=== PATIENT | male | born 1970 | race Caucasian/White ===

== ENCOUNTER 2023-07-31 06:24 | Inpatient (IN) ==
[2023-07-31 07:57] LABS: Appearance Urine Cloudy (Clear); Bacteria Urine Automated Negative (Negative); Bilirubin Urine Negative (Negative); Blood Urine Negative (Negative); Color Urine Dark Yellow; Glucose Urine UA Negative (Negative); Ketones Urine Trace (Negative); Leukocyte Esterase Urine Negative (Negative); Nitrite Urine Negative (Negative); Protein Urine Trace (Negative); Specific Gravity Urine 1.035 (1.000-1.030); Urobilinogen Urine Negative (Negative)
[2023-07-31 07:58] LABS: Basophils # (auto) 0.04 K/uL (0.00-0.20); Basophils % (auto) 0.3 %; Eosinophils # (auto) 0.07 K/uL (0.00-0.50); Eosinophils % (auto) 0.5 %; Hemoglobin 14.6 g/dl (14.0-18.0); Immature Granulocytes # (auto) 0.07 K/uL (0.01-0.20); Immature Granulocytes % (auto) 0.5 %; Lymphocytes # (auto) 1.47 K/uL (1.20-3.40); Lymphocytes % (auto) 10.9 %; Mean Corpuscular Hemoglobin 31.9 pg (25.0-34.0); Mean Corpuscular Hgb Conc 36.5 g/dL (32.0-36.0); Mean Corpuscular Volume 87.3 fL (80.0-100.0); Mean Platelet Volume 9.3 fL (9.4-12.4); Monocytes # (auto) 0.84 K/uL (0.11-0.59); Monocytes % (auto) 6.2 %; Neutrophils # (auto) 11.04 K/uL (1.40-6.50); Neutrophils % (auto) 81.6 %; Platelet Count 254 K/uL (130-400); RDW Coefficient of Variation 12.2 % (11.5-14.5); RDW Standard Deviation 38.8 fL (36.4-46.3); Red Blood Count 4.58 M/uL (4.70-6.10); White Blood Count 13.53 K/ul (4.8-10.8)
[2023-07-31 08:07] LABS: Albumin Globulin Ratio 1.3 (0.9-2); Albumin Level 4.2 gm/dl (3.4-5.0); BUN Creatinine Ratio 21.4 (10-20); Bilirubin,Total 0.5 mg/dl (0.2-1.0); Calcium 8.8 mg/dl (8.6-10.3); Creatinine Clr Calc Pharmacy 106.3 ml/min; Est GFR (African American) 116.7 ml/min; Est GFR (Non-African American) 100.7 ml/min; Globulin 3.2 gm/dl (2.5-4.0); Potassium 3.6 mmol/L (3.5-5.1); Total Protein 7.4 gm/dl (6.0-8.3)
[2023-07-31 08:23] LABS: Calcium Oxalate Crystals Urine Present (None Prsent)
[2023-07-31] MEDS ORDERED: OPTIRAY 320 500ml IV ONE (09:00)
--- NOTE | 2023-07-31 09:35 | CT Scan Report ---
CT SCAN OF THE ABDOMEN AND PELVIS WITH IV CONTRAST CLINICAL HISTORY: Right upper quadrant abdominal pain. COMPARISON STUDY: No priors. TECHNIQUE: Following the IV administration of 90 cc of Optiray 320, CT scan of the abdomen and pelvi s is performed from the lung bases to the proximal femora. Images are reviewed in the axial, sagittal , and coronal planes. IV contrast was administered without complication. A dose lowering technique wa s utilized adhering to the principles of ALARA. CT DOSE: 1127.22 mGy.cm FINDINGS: Lung bases: The heart is mildly enlarged noting trace pericardial effusion. There is mild bibasilar s carring/atelectasis. Air-trapping is seen at the right lung base. No airspace consolidation or pleura l effusion is identified. There is a small hiatal hernia. Liver: The contrast-enhanced liver is normal in size, contour, and attenuation. There is no intrahepa tic biliary ductal dilatation. The hepatic veins and portal veins are patent. Gallbladder: There are numerous calcified gallstones. The gallbladder is distended, and the wall is t hickened/hyperemic with surrounding inflammation and fluid. Findings are consistent with acute cholec ystitis. Suspect stones in the cystic duct on image #101. Spleen: Normal in size and attenuation. Pancreas: Unremarkable. Adrenal glands: Unremarkable. Kidneys: The contrast enhanced kidneys are normal in size and without hydronephrosis. The kidneys enh ance symmetrically. Renal sinus cysts are seen bilaterally. Abdominal vasculature: The abdominal aorta is normal in course and caliber. There is a fat-containing umbilical hernia. The IVC is diminutive, with large retroperitoneal collateral vessels and a large a zygos vein. Bowel: There is mild to moderate colonic fecal retention. No bowel obstruction is seen. Wall thickeni ng is noted in the rectosigmoid. No surrounding inflammation is seen. The appendix is well-visualize d and normal. Peritoneum: There is no intraperitoneal free air or abdominal ascites. Lymphadenopathy: None. Pelvic viscera: The bladder is largely decompressed and appears thick-walled. The prostate gland and seminal vesicles are normal as visualized. Skeletal structures: There is mild to moderate lumbosacral spondylosis. No lytic or blastic lesions a re seen. IMPRESSION: 1. Cholelithiasis with acute cholecystitis. There are likely calcified gallstones in the cystic duct. Surgical evaluation is advised. 2. There is no intra or extrahepatic biliary ductal dilatation. 3. Circumferential wall thickening is suggested involving the rectosigmoid colon. There is no surroun ding inflammation and this is of indeterminate significance. If not recently performed, follow-up wit h colonoscopy is recommended for further assessment. 4. The bladder wall is circumferentially thickened. Correlate with clinical findings and urinalysis. 5. Mild cardiomegaly. 6. Additional findings as above. ACT 112: Negative or not required by law. Electronically signed by: Kash Hickey M.D. 07/31/2023 9:34 AM
[2023-07-31] MEDS ORDERED: ACETAMINOPHEN 1,000 MG/100 ML VIAL IV STA (10:00)
[2023-07-31] MEDS ORDERED: MoRPHine SULFATE 4 MG/ML 1 ML CARP\\VIAL IV STA (10:00)
[2023-07-31] MEDS ORDERED: ONDANSETRON INJ 2 MG/ML 2 ML VIAL IV STA (10:00)
--- NOTE | 2023-07-31 10:04 | Emergency Department Note ---
Impression & Plan Abdominal pain, Acute cholecystitis ED Provider Note ED Provider Note NAME: MARTHA PERSAUD AGE:53 SEX: Male : 1970 ARRIVES VIA: Private vehicle INFORMANT: Patient ED PROVIDER(s): Ariana Horvath DO CHIEF COMPLAINT: Abdominal pain HPI: This is a 53-year-old male presents emergency room due to concern for abdominal pain. Patient states he felt uncomfortable when he laid down to go to sleep around midnight. He states that an hour or so before that he had eaten chili. He states by 3 AM he woke up with much more severe right upper quadrant abdominal pain. He denies nausea or vomiting, denies fevers or chills, denies any recent change in urine or change in stools. No prior abdominal surgeries. He states he had a similar episode of pain on Saturday that kept him up all night however by Saturday morning at 7 AM the symptoms resolved and he felt fine Saturday and yesterday. He states with that episode he did have nausea vomiting though, no nausea or vomiting last night. No other prior GI history. No other treatment prior to arrival. PAST MEDICAL HISTORY:See Below PAST SURGICAL HISTORY:See Below FAMILY HISTORY:See Below SOCIAL HISTORY:See Below HOME MEDICATIONS:See Below ALLERGIES:See Below VITALS:See Below PHYSICAL EXAMINATION: GENERAL: alert, well appearing, well nourished, no distress, non-toxic EYE EXAM: normal conjunctiva, PERRL and EOM's grossly intact OROPHARYNX: no exudate, no erythema, lips, buccal mucosa, and tongue normal and mucous membranes are moist NECK: supple, no nuchal rigidity, no adenopathy, non-tender LUNGS: Clear to auscultation. Normal chest wall mechanics, no w/r/r HEART: no murmurs, S1 normal and S2 normal ABDOMEN: abdomen soft, tenderness with palpation of the right upper quadrant, normo-active bowel sounds, no masses, no rebound or guarding. BACK: Back is symmetrical on inspection and there is no deformity, no midline tenderness, no CVA tenderness. SKIN: no rashes, petechiae, orbruising UPPER EXTREMITIES: upper extremities are grossly normal. FROM, nml pulses b/l. LOWER EXTREMITIES: No pitting edema. FROM, nml pulses b/l. NEURO EXAM: Normal sensorium, cranial nerves II-XII grossly intact, normal speech, no facial droop,nogross weakness of arms, no gross weakness of legs. Gross sensation intact. No ataxia. Vital Signs: reviewed and remarkable Differential Diagnosis: Pancreatitis, gastritis, cholecystitis, GERD, GI bleed, perforation, mesenteric ischemia, pneumonia, ACS, dissection, as well as others were considered MEDICAL DECISION MAKING: This is a 53-year-old male presents emergency department due to concern for abdominal pain. Patient afebrile vital signs stable. Labs drawn and sent, IV established, and patient sent for CT of abdomen pelvis. Once a bed was available he was placed in a room and started on IV fluids. He was given IV Tylenol and IV morphine for pain as well as IV Zofran for nausea. Case discussed with general surgery on-call as CT of the abdomen and pelvis showed evidence of acute cholecystitis. Patient did have mild leukocytosis, no abnormal LFTs or SOPHIE was noted. Patient does use Eliquis due to history of DVTs although had not had his morning dose. He stated his last dose of Eliquis had been the night before. General surgery came and evaluated patient emergency room and admitted him for operative intervention. Patient remained hemodynamically stable throughout. They did not request any additional orders placed. Consultation(s): 1140: Discussed with general surgery, Linda Medina nurse practitioner, they plan to admit the patient. ER Treatment Provided: See below Diagnostics Interpreted By Me: -ECG: [] -Cardiac Monitoring: An order was placed for continuous cardiac monitoring. The monitor shows a rate of [] with [] rhythm. -Laboratory studies: As stated above and show below. -Imaging studies: [] Triage Nursing Note Reviewed Prior/Outside Records Reviewed Past Med/Surg History Social History Smoking Status: Never smoker Second Hand Exposure: No; Do You Dip or Chew Tobacco: No; Tobacco Cessation Education Requested by Patient: No Hx Alcohol Use: Yes Alcohol type: beer Hx Substance Use: No Preferred Language: [place] Communication Ability: Effective Vice President Compliance Required: No Beliefs That Will Affect Care: None Current Living Situation: Alone Other Information That Helps Us Care for You: No Feels Safe at Home: No Is there a partner from a previous relationship who is making you feel unsafe now?: No Any Concerns about Your Family Situation: No Would You Like to Speak to Someone About Your Situation: No Assistive Devices: None Allergies Allergies Allergy/AdvReac Type Severity Reaction Status Date / Time No Known Allergies Allergy Unverified 07/31/23 08:59 Home Meds Home Medications Medication Instructions Recorded Confirmed apixaban 5 mg tablet (Eliquis) 5 mg PO BID 07/31/23 07/31/23 sildenafil 100 mg tablet 100 - 200 mg PO DIRECTED PRN 07/31/23 07/31/23 Other Results & Data (ED) Vital Signs Vital Signs - 24 hr 07/31/23 06:37 07/31/23 09:00 07/31/23 11:00 Temperature 36.8 C Temperature Source Temporal Artery Scan Pulse Rate 88 Pulse Rate [Left Finger] 75 95 H Pulse Rhythm Regular Pulse Rhythm [Left Finger] Regular Pulse Strength Normal Pulse Strength [Left Finger] Normal Respiratory Rate 19 18 18 Respiratory Effort / Characteristics Non-Labored Spontaneous Non-Labored Spontaneous Respiratory Depth Normal Normal Respiratory Pattern Regular Regular Blood Pressure [Right Arm] 183/105 H 167/102 H Blood Pressure Mean [Right Arm] 131 123 Blood Pressure Position Sitting Blood Pressure Position [Right Arm] Sitting Pulse Oximetry 95 98 97 Oxygen Delivery Method Room Air Room Air Sepsis Recent Fever Within 48 Hours No Sepsis New/Unexplained Change in Mental Status N/A Sepsis Action Taken by Nursing No Action Required 07/31/23 11:18 Temperature Temperature Source Pulse Rate 90 Pulse Rate [Left Finger] Pulse Rhythm Pulse Rhythm [Left Finger] Pulse Strength Pulse Strength [Left Finger] Respiratory Rate Respiratory Effort / Characteristics Respiratory Depth Respiratory Pattern Blood Pressure [Right Arm] Blood Pressure Mean [Right Arm] Blood Pressure Position Blood Pressure Position [Right Arm] Pulse Oximetry Oxygen Delivery Method Sepsis Recent Fever Within 48 Hours Sepsis New/Unexplained Change in Mental Status Sepsis Action Taken by Nursing Laboratory Data 08/01/23 07:23 08/01/23 07:23 Lab Results 07/31/23 Range/Units 07:30 WBC 13.53 H (4.8-10.8) K/ul RBC 4.58 L (4.70-6.10) M/uL Hgb 14.6 (14.0-18.0) g/dl Hct 40.0 L (42.0-52.0) % MCV 87.3 (80.0-100.0) fL MCH 31.9 (25.0-34.0) pg MCHC 36.5 H (32.0-36.0) g/dL RDW Std Deviation 38.8 (36.4-46.3) fL RDW Coeff of [place] 12.2 (11.5-14.5) % Plt Count 254 (130-400) K/uL MPV 9.3 L (9.4-12.4) fL Immature Gran % (Auto) 0.5 % Neut % (Auto) 81.6 % Lymph % (Auto) 10.9 % Andrews % (Auto) 6.2 % Eos % (Auto) 0.5 % Baso % (Auto) 0.3 % Neut # (Auto) 11.04 H (1.40-6.50) K/uL Lymph # (Auto) 1.47 (1.20-3.40) K/uL Andrews # (Auto) 0.84 H (0.11-0.59) K/uL Eos # (Auto) 0.07 (0.00-0.50) K/uL Baso # (Auto) 0.04 (0.00-0.20) K/uL Immature Gran # (Auto) 0.07 (0.01-0.20) K/uL Sodium 137 (136-145) mmol/L Potassium 3.6 (3.5-5.1) mmol/L Chloride 107 (98-107) mmol/L Carbon Dioxide 22 (21-32) mmol/L Anion Gap 8 (3-11) BUN 18 (6-23) mg/dl Creatinine 0.84 (0.6-1.4) mg/dl Est Cr Clr Drug Dosing 106.3 ml/min Est GFR ( Amer) 116.7 ml/min Est GFR (Non-Af Amer) 100.7 ml/min BUN/Creatinine Ratio 21.4 H (10-20) Glucose 133 H (70-99(Fasting)) mg/dl Calcium 8.8 (8.6-10.3) mg/dl Total Bilirubin 0.5 (0.2-1.0) mg/dl AST 17 (13-39) U/L ALT 12 (7-52) U/L Alkaline Phosphatase 54 (34-104) U/L Total Protein 7.4 (6.0-8.3) gm/dl Albumin 4.2 (3.4-5.0) gm/dl Globulin 3.2 (2.5-4.0) gm/dl Albumin/Globulin Ratio 1.3 (0.9-2) Lipase 24 (11-82) U/L Urine Color Dark Yellow Urine Appearance Cloudy A (Clear) Urine pH 6.0 (4.5-7.5) Ur Specific [place] 1.035 H (1.000-1.030) Urine Protein Trace H (Negative) Urine Glucose (UA) Negative (Negative) Urine Ketones Trace H (Negative) Urine Blood Negative (Negative) Urine Nitrite Negative (Negative) Urine Bilirubin Negative (Negative) Urine Urobilinogen Negative (Negative) Ur Leukocyte Esterase Negative (Negative) Urine WBC (Auto) 1-5 (0-5) /hpf Urine RBC (Auto) 5-10 H (0-4) /hpf U Hyaline Cast (Auto) 1-5 (0-5) /lpf U Epithel Cells (Auto) 10-20 H (0-5) /lpf Urine Bacteria (Auto) Negative (Negative) Urine Crystals Calcium Oxalate A (None Prsent) Calcium Oxalate Crystal Present A (None Prsent) Administered Medications Sodium Chloride (Nss) 1,000 mls @ 125 mls/hr IV .Q8H [facility] Stop: 08/30/23 09:59 Last Admin: 08/01/23 07:35 Dose: 125 mls/hr Documented By: Infusion: 08/01/23 05:28 Dose: Infused Documented By: Admin: 07/31/23 21:28 Dose: 125 mls/hr Documented By: Infusion: 07/31/23 18:17 Dose: Infused Documented By: Admin: 07/31/23 10:17 Dose: 125 mls/hr Documented By: JASMEET Ampicillin Sodium/Sulbactam Sodium 3,000 mg/ Sodium Chloride 100 mls @ 100 mls/hr IV Q6H [facility]; Protocol Stop: 08/10/23 13:59 Last Admin: 08/01/23 14:07 Dose: 100 mls/hr Documented By: Infusion: 08/01/23 08:57 Dose: Infused Documented By: Admin: 08/01/23 07:36 Dose: 100 mls/hr Documented By: Infusion: 08/01/23 03:22 Dose: Infused Documented By: Admin: 08/01/23 02:22 Dose: 100 mls/hr Documented By: Infusion: 07/31/23 22:30 Dose: Infused Documented By: Admin: 07/31/23 21:29 Dose: 100 mls/hr Documented By: Infusion: 07/31/23 16:43 Dose: Infused Documented By: Admin: 07/31/23 15:21 Dose: 100 mls/hr Documented By: VERONICA Oxycodone HCl (Oxycodone Hcl Ir 5 Mg Tab (Immediate Release)) 10 mg PO Q4H PRN PRN Reason: SEVERE Pain (7,8,9,10) Stop: 08/14/23 13:47 Last Admin: 07/31/23 21:31 Dose: 10 mg Documented By: Admin: 07/31/23 15:21 Dose: 10 mg Documented By: VERONICA Discontinued Medications Acetaminophen (Ofirmev) 1,000 mg in 100 mls @ 400 mls/hr IV NOW STA Stop: 07/31/23 10:14 Last Infusion: 07/31/23 10:35 Dose: Infused Documented By: Admin: 07/31/23 10:20 Dose: 400 mls/hr Documented By: JASMEET Ioversol (Optiray 320 500ml) 90 ml IV ONCE ONE Stop: 07/31/23 09:01 Last Admin: 07/31/23 08:55 Dose: 90 ml Documented By: TYRESE Morphine Sulfate (Morphine Sulfate 4 Mg/Ml 1 Ml Carp\Vial) 4 mg IV NOW STA Stop: 07/31/23 10:01 Last Admin: 07/31/23 10:17 Dose: 4 mg Documented By: JASMEET Ondansetron HCl (Ondansetron Inj 2 Mg/Ml 2 Ml Vial) 4 mg IV NOW STA Stop: 07/31/23 10:01 Last Admin: 07/31/23 10:17 Dose: 4 mg Documented By: JASMEET Imaging Data Radiologist's Impression: Abdomen/Pelvis CT 07/31/23 07:50 CT SCAN OF THE ABDOMEN AND PELVIS WITH IV CONTRAST CLINICAL HISTORY: Right upper quadrant abdominal pain. COMPARISON STUDY: No priors. TECHNIQUE: Following the IV administration of 90 cc of Optiray 320, CT scan of the abdomen and pelvis is performed from the lung bases to the proximal femora. Images are reviewed in the axial, sagittal, and coronal planes. IV contrast was administered without complication. A dose lowering technique was utilized adhering to the principles of ALARA. CT DOSE: 1127.22 mGy.cm FINDINGS: Lung bases: The heart is mildly enlarged noting trace pericardial effusion. There is mild bibasilar scarring/atelectasis. Air-trapping is seen at the right lung base. No airspace consolidation or pleural effusion is identified. There is a small hiatal hernia. Liver: The contrast-enhanced liver is normal in size, contour, and attenuation. There is no intrahepatic biliary ductal dilatation. The hepatic veins and portal veins are patent. Gallbladder: There are numerous calcified gallstones. The gallbladder is distended, and the wall is thickened/hyperemic with surrounding inflammation and fluid. Findings are consistent with acute cholecystitis. Suspect stones in the cystic duct on image #101. Spleen: Normal in size and attenuation. Pancreas: Unremarkable. Adrenal glands: Unremarkable. Kidneys: The contrast enhanced kidneys are normal in size and without hydronephrosis. The kidneys enhance symmetrically. Renal sinus cysts are seen bilaterally. Abdominal vasculature: The abdominal aorta is normal in course and caliber. There is a fat-containing umbilical hernia. The IVC is diminutive, with large retroperitoneal collateral vessels and a large azygos vein. Bowel: There is mild to moderate colonic fecal retention. No bowel obstruction is seen. Wall thickening is noted in the rectosigmoid. No surrounding inflammation is seen. The appendix is well-visualized and normal. Peritoneum: There is no intraperitoneal free air or abdominal ascites. Lymphadenopathy: None. Pelvic viscera: The bladder is largely decompressed and appears thick-walled. The prostate gland and seminal vesicles are normal as visualized. Skeletal structures: There is mild to moderate lumbosacral spondylosis. No lytic or blastic lesions are seen. IMPRESSION: 1. Cholelithiasis with acute cholecystitis. There are likely calcified gallstones in the cystic duct. Surgical evaluation is advised. 2. There is no intra or extrahepatic biliary ductal dilatation. 3. Circumferential wall thickening is suggested involving the rectosigmoid colon. There is no surrounding inflammation and this is of indeterminate significance. If not recently performed, follow-up with colonoscopy is recommended for further assessment. 4. The bladder wall is circumferentially thickened. Correlate with clinical findings and urinalysis. 5. Mild cardiomegaly. 6. Additional findings as above. ACT 112: Negative or not required by law. Electronically signed by: Kash Hickey M.D. 07/31/2023 9:34 AM Discharge Plan Visit Data Chief Complaint: Flank Pain Stated Complaint: LEFT SIDE PAIN UNDER RIBS ED Provider: Ariana Horvath Discharge Problem: Abdominal pain, Acute cholecystitis Patient Disposition: Admitted As Inpatient Discharge Instructions Interventions: ED Discharge Assessment Last Done: 07/31/23 12:50
[2023-07-31] MEDS: SODIUM CHLORIDE 0.9% 1,000 ML IV SCH ×2 (10:17→21:28)
--- NOTE | 2023-07-31 11:41 | History & Physical Report ---
Date of Service July 31, 2023 Assessment & Plan (1) Acute cholecystitis: Plan: His CT images and results were personally viewed and interpreted by myself Clinically patient has acute cholecystitis Will admit and place on ABX, can have clears then NPO after MN Pain control SCDs for DVT prophylaxis AM labs Will plan on cholecystectomy tomorrow afternoon versus Saturday (2) History of DVT (deep vein thrombosis): History of Present Illness Chief Complaint: Abdominal pain Primary Care Provider: Marylu Sandoval MD This is a 53-year-old male who presents to the ER with sharp right upper quadrant abdominal pain since 3 AM this morning. The pain does radiate into his back. No aggravating or leaving factors. He denies any fevers or chills. He denies scleral icterus, tea colored urine, acholic stools or jaundice. He denies any abdominal surgeries. He takes Eliquis for a history of DVT. He last took this last night. He has never had a colonoscopy. He denies any constipation, melena or hematochezia. Allergies Allergy/AdvReac Type Severity Reaction Status Date / Time No Known Allergies Allergy Unverified 07/31/23 08:59 Past Med/Surg History Social History Smoking Status: Never smoker Preferred Language: Citizen Of [place] Feels Safe at Home: Yes Review of Systems Constitutional: no fever and no chills Eyes: no worsening vision and no problem reported Ear, Nose, Mouth, Throat: no ear pain and no hearing loss Respiratory: no cough and no dyspnea Cardiovascular: no chest pain and no dyspnea on exertion Gastrointestinal: + abdominal pain; no nausea, no vomiting , no constipation and no blood in stools Genitourinary: no dysuria, no urinary hesitancy or no urinary incontinence Musculoskeletal: no back pain and no neck pain Integumentary: no rash, no skin ulcer and no erythema Neurologic: no gait abnormality and no headache(s) Psychiatric: no behavioral changes and no depression Hematologic / Lymphatic: no easy bleeding and no easy bruising Physical Exam Constitutional: WD/WN, vitals as above Eyes: PERRL, conjunctivae normal, anicteric sclerae ENMT: external ear and nose normal, oropharynx normal Neck: trachea midline, no thyromegaly Respiratory: normal respiratory effort, lungs clear to auscultation Cardiovascular: RRR, no murmur, no edema Gastrointestinal (Abdomen): Inspection/Auscultation: abdomen normal to inspection; abdomen not distended Percussion/Palpation: + abdomen tender (RUQ), + guarding and abdomen soft; abdomen not rigid and no hernia Positive Sandoval's Musculoskeletal: no cyanosis or clubbing, extremities motor strength 5/5 Skin: no rashes, warm and dry Neurologic: PERRL, EOMI, accommodation nl, no face palsy, no dysarthria Psychiatric: A+Ox3, euthymic affect Results & Data Results & Data Vital Signs (Past 12 Hours) Vital Signs Temp Pulse Pulse Resp BP Pulse Ox O2 Del Method 07/31/23 11:18 90 07/31/23 11:00 95 H 18 167/102 H 97 Room Air 07/31/23 09:00 75 18 183/105 H 98 07/31/23 06:37 36.8 C 88 19 95 Room Air PG Care Time/CCT Total # of Minutes Spent Total Time Spent with Patient: Total time spent is greater than 50% in coordination of care (as documented) at patient's floor/unit and/or counseling patient: Coding Level of Care Code 52198 INT INP/OBS CARE 3/75MIN Diagnoses Acute cholecystitis K81.0 History of DVT (deep vein thrombosis) Z86.718
[2023-07-31] MEDS ORDERED: hydrALAZINE HCL 20 MG/ML VIAL IV PRN (11:46)
[2023-07-31] MEDS ORDERED: MoRPHine SULFATE 4 MG/ML 1 ML CARP\\VIAL IV PRN (13:48)
[2023-07-31] MEDS: AMPICILLIN/SULBACTAM SOD 3,000 MG in SODIUM CHLOR 0.9% MINI-B 100 ML IV SCH ×2 (15:21→21:29)
[2023-07-31] MEDS: oxyCODONE HCL IR 5 MG TAB (IMMEDIATE RELEASE) PO PRN ×2 (15:21→21:31)
[2023-08-01] MEDS: AMPICILLIN/SULBACTAM SOD 3,000 MG in SODIUM CHLOR 0.9% MINI-B 100 ML IV SCH ×4 (02:22→19:29)
[2023-08-01] MEDS: SODIUM CHLORIDE 0.9% 1,000 ML IV SCH ×2 (07:35→16:41)
[2023-08-01 08:13] LABS: Basophils # (auto) 0.04 K/uL (0.00-0.20); Basophils % (auto) 0.4 %; Eosinophils # (auto) 0.18 K/uL (0.00-0.50); Eosinophils % (auto) 1.8 %; Hematocrit (blood only) 35.4 % (42.0-52.0); Hemoglobin 12.4 g/dl (14.0-18.0); Immature Granulocytes # (auto) 0.05 K/uL (0.01-0.20); Immature Granulocytes % (auto) 0.5 %; Lymphocytes # (auto) 1.36 K/uL (1.20-3.40); Lymphocytes % (auto) 13.3 %; Mean Corpuscular Hemoglobin 31.6 pg (25.0-34.0); Mean Corpuscular Volume 90.1 fL (80.0-100.0); Mean Platelet Volume 9.4 fL (9.4-12.4); Monocytes # (auto) 0.62 K/uL (0.11-0.59); Monocytes % (auto) 6.1 %; Neutrophils # (auto) 7.98 K/uL (1.40-6.50); Neutrophils % (auto) 77.9 %; Platelet Count 213 K/uL (130-400); RDW Coefficient of Variation 12.3 % (11.5-14.5); RDW Standard Deviation 41.1 fL (36.4-46.3); Red Blood Count 3.93 M/uL (4.70-6.10); White Blood Count 10.23 K/ul (4.8-10.8)
--- NOTE | 2023-08-01 08:16 | Surgery Progress Note ---
Date of Service August 01, 2023 Assessment & Plan (1) Acute cholecystitis: Plan: Clear liquids today NPO MN Plan for Lap [place] tomorrow with Dr. Leblanc Pain controlled Admission and Anticipated Discharge Date Admission Date: July 31, 2023 Supervising Physician Co-Signing Physician Notes I personally saw and evaluated the patient with Jose KIM and agree with the assessment and plan. 53-year-old male with acute cholecystitis, on Eliquis for history of DVT He can have clear liquids today, n.p.o. after midnight IV antibiotics and pain control Will plan on a laparoscopic cholecystectomy, possible open tomorrow Subjective patient report mild abd pain No n/v passing flatus Review of Systems Constitutional: no fever and no chills Eyes: + corrective lenses Respiratory: no dyspnea Cardiovascular: no chest pain Gastrointestinal: + abdominal pain (mild); no nausea and n o vomiting Genitourinary: no problem reported Musculoskeletal: no muscle weakness Physical Exam Physical Exam: alert oriented Constitutional: cooperative and comfortable; no acute distress Respiratory: normal respiratory effort and able to speak in complete sentences; no respiratory distress Cardiovascular: Rate/Rhythm: + tachycardic (98) Gastrointestinal (Abdomen): Inspection/Auscultation: abdomen not distended Percussion/Palpation: + abdomen tender (mild rates 3/10) and abdomen soft; no guarding Results & Data Vital Signs (Past 12 Hours) Vital Signs Temp Pulse Resp BP Pulse Ox O2 Del Method 08/01/23 07:56 99.5 F 98 H 16 142/82 H 93 Room Air PG Care Time/CCT Total # of Minutes Spent Total Time Spent with Patient: Total time spent is greater than 50% in coordination of care (as documented) at patient's floor/unit and/or counseling patient: Coding Level of Care Code 36298 SUB INP/OBS CARE 25MIN Diagnoses Acute cholecystitis K81.0
[2023-08-01 08:36] LABS: Albumin Globulin Ratio 1.1 (0.9-2); Albumin Level 3.3 gm/dl (3.4-5.0); BUN Creatinine Ratio 14.4 (10-20); Calcium 7.8 mg/dl (8.6-10.3); Creatinine Clr Calc Pharmacy 99.2 ml/min; Est GFR (African American) 113.4 ml/min; Est GFR (Non-African American) 97.9 ml/min; Globulin 2.9 gm/dl (2.5-4.0); Potassium 3.3 mmol/L (3.5-5.1); Total Protein 6.2 gm/dl (6.0-8.3)
[2023-08-01] MEDS: oxyCODONE HCL IR 5 MG TAB (IMMEDIATE RELEASE) PO PRN (15:53)
[2023-08-01] MEDS ORDERED: Nursing to Pharmacy Communication SCH (19:15)
[2023-08-02] MEDS: SODIUM CHLORIDE 0.9% 1,000 ML IV SCH ×4 (01:25→23:33)
[2023-08-02] MEDS: AMPICILLIN/SULBACTAM SOD 3,000 MG in SODIUM CHLOR 0.9% MINI-B 100 ML IV SCH ×4 (01:26→19:59)
[2023-08-02] MEDS ORDERED: MIDAZOLAM HCL 1 MG/ML 2ML VIAL ONE (06:31)
[2023-08-02] MEDS ORDERED: fentaNYL citrate PF 100 MCG/2 ML VIAL ONE ×3 (06:32→08:55)
[2023-08-02] MEDS ORDERED: LIDOCAINE 2% 2 ML VIAL/AMP(20MG/ML) INFIL ONE (06:57)
[2023-08-02] MEDS ORDERED: ROCURONIUM BROMIDE 10 MG/ML 5 ML VIAL IV ONE ×2 (06:57→08:37)
[2023-08-02] MEDS ORDERED: DEXAMETHASONE SOD INJ 4 MG/ML VIAL ONE (06:57)
[2023-08-02] MEDS ORDERED: ONDANSETRON INJ 2 MG/ML 2 ML VIAL ONE (06:57)
[2023-08-02] MEDS ORDERED: PROPOFOL IV EMULSION 10 MG/ML 20 ML VIAL IV ONE (06:57)
[2023-08-02] MEDS ORDERED: BUPIVACAINE/EPINEPHRINE 0.25% 1:200,000 30 ML VIAL ONE (07:06)
--- NOTE | 2023-08-02 07:06 | Surgery Progress Note ---
Date of Service August 02, 2023 Assessment & Plan (1) Acute cholecystitis: Plan: Patient has been doing well n.p.o. since midnight Will plan on a laparoscopic cholecystectomy, possible open, possible IOC today Consent was obtained, risks discussed including bleeding, infection, bile leak, ductal injury (2) History of DVT (deep vein thrombosis): Admission and Anticipated Discharge Date Admission Date: July 31, 2023 Subjective Patient seen and examined. Abdominal pain improved. Afebrile. No nausea or vomiting. Review of Systems Constitutional: no fever and no chills Physical Exam Constitutional: WD/WN, vitals as above Gastrointestinal (Abdomen): Inspection/Auscultation: abdomen normal to inspection; abdomen not distended Percussion/Palpation: + abdomen tender (RUQ) and abdomen soft; no guarding and abdomen not rigid Results & Data Vital Signs (Past 12 Hours) Vital Signs Temp Pulse Resp BP Pulse Ox O2 Del Method 08/02/23 06:41 37.2 C 105 H 18 156/97 H 90 Room Air 08/01/23 22:00 38 C H 86 18 124/77 94 Room Air 08/01/23 20:30 Room Air PG Care Time/CCT Total # of Minutes Spent Total Time Spent with Patient: Total time spent is greater than 50% in coordination of care (as documented) at patient's floor/unit and/or counseling patient: Coding Level of Care Code 10583 SUB INP/OBS CARE 25MIN Diagnoses Acute cholecystitis K81.0 History of DVT (deep vein thrombosis) Z86.718
[2023-08-02] MEDS ORDERED: ACETAMINOPHEN 1000 MG/100 ML IV IV ONE (07:08)
[2023-08-02] MEDS ORDERED: HYDROmorphone INJ 2 MG/ML SYR/VIAL IV PRN (07:17)
[2023-08-02] MEDS ORDERED: fentaNYL citrate PF 100 MCG/2 ML VIAL IV PRN (07:17)
[2023-08-02] MEDS ORDERED: PROMETHAZINE HCL 6.25 MG in SODIUM CHLORIDE 0.9% 50 ML IV PRN (07:17)
[2023-08-02] MEDS ORDERED: ePHEDrine sulfate 50 MG/ML AMP IV PRN (07:17)
[2023-08-02] MEDS ORDERED: ONDANSETRON INJ 2 MG/ML 2 ML VIAL IV PRN (07:17)
[2023-08-02] MEDS ORDERED: ATROPINE SULFATE 0.1 MG/ML 10ML SYR IV PRN (07:17)
--- NOTE | 2023-08-02 07:18 | Anesthesiology Consultation ---
Date of Service August 02, 2023 Assessment & Plan (1) Encounter for pre-operative examination: Chart Review Chart Review: Acceptable Risk for Surgery and Patient NOT seen in Pre Admission Testing Consults Requested none History Surgery Operation Date: 08/02/23 07:15 Proposed Procedures p Laparoscopic Cholecystectomy Possible Open Possible Cholangiogram - Geovany Leblanc, Height/Weight Height: 5 ft 7 in Weight: 83.5 kg Allergies Allergy/AdvReac Type Severity Reaction Status Date / Time No Known Allergies Allergy Unverified 07/31/23 08:59 Medications Home Medications Medication Instructions Recorded Confirmed Last Taken apixaban 5 mg tablet (Eliquis) 5 mg PO BID 07/31/23 07/31/23 Unknown sildenafil 100 mg tablet 100 - 200 mg PO DIRECTED PRN 07/31/23 07/31/23 Unknown Other Active Medications Generic Name Dose Route Start Last Admin Trade Name Freq PRN Reason Stop Dose Admin Sodium Chloride 1,000 mls @ 125 mls/hr 07/31/23 10:00 08/02/23 01:25 Nss IV 08/30/23 09:59 125 mls/hr .Q8H RADHA Administration Ampicillin Sodium/Sulbactam 100 mls @ 100 mls/hr 07/31/23 14:00 08/02/23 02:31 Sodium 3,000 mg/ Sodium IV 08/10/23 13:59 Infused Chloride Q6H RADHA Infusion Protocol Oxycodone HCl 10 mg 07/31/23 13:48 07/31/23 21:31 Oxycodone Hcl Ir 5 Mg Tab (Immediate Release) PO 08/14/23 13:47 10 mg Q4H PRN Administration SEVERE Pain (7,8,9,10) Oxycodone HCl 5 mg 07/31/23 13:48 08/01/23 15:53 Oxycodone Hcl Ir 5 Mg Tab (Immediate Release) PO 08/14/23 13:47 5 mg Q4H PRN Administration MODERATE Pain (4,5,6) & Pre PT NPO Date Last Intake of Fluids: 08/01/23 Time Last Intake of Fluids: 23:00 Date Last Intake of Solids: 08/01/23 Time Last Intake of Solids: 23:00 Past Medical History Medical History (Updated 08/02/23 @ 07:18 by Maximino Castillo MD) Encounter for pre-operative examination History of DVT (deep vein thrombosis) Acute cholecystitis Exercise / Class Metabolic Activity II 4-5 Yardwork/Stairs/Walk up hill Past Surgical History none per pt Past Anesthesia History No Hx of Anesthesia Complications and No Family Hx of Anesthesia Complications History of PONV No Hx of PONV and No Hx of Motion Sickness Social History Smoking Status: Never smoker Do You Dip or Chew Tobacco: Yes Hx Alcohol Use: Yes Alcohol type: beer alcohol intake frequency: a few times a week Hx Substance Use: No Physical Exam Vital Signs Last Vital Signs Temp 37.2 C 08/02/23 06:41 Pulse 105 H 08/02/23 06:41 Resp 18 08/02/23 06:41 BP 156/97 H 08/02/23 06:41 Pulse Ox 90 08/02/23 06:41 O2 Del Method Room Air 08/02/23 06:41 Testing Laboratory Results 08/01/23 07:23 08/01/23 07:23 Urine Color Dark Yellow 07/31/23 07:30 Urine Appearance Cloudy (Clear) A 07/31/23 07:30 Urine pH 6.0 (4.5-7.5) 07/31/23 07:30 Ur Specific Jamul 1.035 (1.000-1.030) H 07/31/23 07:30 Urine Protein Trace (Negative) H 07/31/23 07:30 Urine Glucose (UA) Negative (Negative) 07/31/23 07:30 Urine Ketones Trace (Negative) H 07/31/23 07:30 Urine Nitrite Negative (Negative) 07/31/23 07:30 Ur Leukocyte Esterase Negative (Negative) 07/31/23 07:30 Urine WBC (Auto) 1-5 /hpf (0-5) 07/31/23 07:30 Urine RBC (Auto) 5-10 /hpf (0-4) H 07/31/23 07:30 U Hyaline Cast (Auto) 1-5 /lpf (0-5) 07/31/23 07:30 U Epithel Cells (Auto) 10-20 /lpf (0-5) H 07/31/23 07:30 Urine Bacteria (Auto) Negative (Negative) 07/31/23 07:30
[2023-08-02] MEDS ORDERED: NEOSTIGMINE METHYLSULFATE 1 MG/ML 10ML VIAL ONE (08:20)
[2023-08-02] MEDS ORDERED: GLYCOPYRROLATE 0.2 MG/ML VIAL ONE (08:20)
--- NOTE | 2023-08-02 09:04 | Post Operative Brief Note ---
PG Immediate Post Op with CF Date of Surgery August 02, 2023 Pre & Post Diagnosis Operation Date: 08/02/23 07:15 Pre-Op Diagnosis: ACUTE CHOLECYSTITIS Post-Op Diagnosis: ACUTE CHOLECYSTITIS I identified the patient and participated in the time-out.: Yes Procedure Operation Date: 08/02/23 07:15 Actual Procedures p Laparoscopic Cholecystectomy(Not Applicable) - Geovany Leblanc DO Surgeon Geovany Leblanc DO Paving Contractor Jose KIM Estimated Blood Loss 50 Findings See Below Inflamed, thickened gallbladder Specimens Specimen Description: permanent specimen: A) Gallbladder Anesthesia Type General Complications none Disposition Disposition: Recovery Room
--- NOTE | 2023-08-02 09:09 | Operative Report ---
PG Post Operative Report Pre & Post Diagnosis Operation Date: 08/02/23 07:15 Pre-Op Diagnosis: ACUTE CHOLECYSTITIS Post-Op Diagnosis: ACUTE CHOLECYSTITIS I identified the patient and participated in the time-out.: Yes Procedure Operation Date: 08/02/23 07:15 Actual Procedures p Laparoscopic Cholecystectomy(Not Applicable) - Geovany Leblanc DO Surgeon Geovany Leblanc DO [employer] Attendant Jose KIM Estimated Blood Loss 50 Findings See Below Inflamed, thickened gallbladder Fluids see anesthesia record Specimens Gallbladder to pathology Drains None Anesthesia Type General Complications none Disposition Disposition: Recovery Room Indications 53 yo male with acute cholecystitits Description of Procedure The patient was brought to the operating room and placed in the supine position with both arms extended. At this time he underwent general endotracheal anesthesia without any problems. He was given appropriate pre-operative antibiotics. His abdomen prepped and draped in the usual sterile fashion. A timeout was called, the procedure was verified as Laparoscopic cholecystectomy, possible open, possible intra-operative cholangiogram. Surgical, nursing and anesthesia teams agreed and the procedure was begun. After injection of 0.25% Marcaine with epinephrine, a supraumbilical vertical incision was made and carried down to the fascia using S-retractors. The abdominal wall was then elevated with towel clamps and abdomen entered using the Veress needle confirming position using the saline drop test. Pneumoperitoneum was established. 5mm trocar was placed. Laparoscope was introduced. No injury from entry into the abdomen was visualized after inspection of the abdomen. Three further ports were placed under direct visualization. One 11mm in the subxiphoid region and two 5mm in the RUQ. At this time the abdomen was inspected and the gallbladder identified. The gallbladder fundus was grasped and retracted cephalad. The gallblader itself was inflamed, thickened and dilated. The gallbladder was needle decompressed to aid in retraction. The gallbladder infundibulum was then grasped and retracted laterally. The cystic duct and cystic artery were then identified and skeletonized. The cystic duct was inflamed and would not accommodate a 10mm clip. The 11mm port was upsized to a 12mm and the cystic duct was transected using a peters load 45mm TAWANA staple load. The cystic artery was then clipped twice proximally and once distally and transected using scissors. The gallbladder was then taken off of the liver bed using electrocautery and placed in an endocatch bag and removed from the subxiphoid port. The liver bed was then inspected and no bile leak or bleeding was evident. The subxiphoid port was then closed using 0-Vicryl using the suture passer. The trocars were then removed under direct visualization and no bleeding was present. Abdomen was desufflated. The skin was then closed using 4-0 Monocryl in a subcuticular fashion. Surgical glue was applied. Needle and sponge counts were correct x 2. At this time the patient was awoken from anesthesia and extubated having remained stable throughout the entire case. The patient was then transported to PACU in stable condition. The nurse practitioner was present and scrubbed for the entire case. She was essential in positioning, prepping and draping the patient, retraction and exposure, driving the laparoscope, closure of the incisions and placement of the dressings. I attest to the content of the Intraoperative Record and any orders documented therein. Any exceptions are noted below.
[2023-08-02] MEDS: oxyCODONE HCL IR 5 MG TAB (IMMEDIATE RELEASE) PO PRN ×2 (11:30→16:07)
[2023-08-02 13:42] LABS: Basophils # (auto) 0.03 K/uL (0.00-0.20); Basophils % (auto) 0.3 %; Hematocrit (blood only) 36.3 % (42.0-52.0); Hemoglobin 12.6 g/dl (14.0-18.0); Immature Granulocytes # (auto) 0.03 K/uL (0.01-0.20); Immature Granulocytes % (auto) 0.3 %; Lymphocytes # (auto) 0.67 K/uL (1.20-3.40); Lymphocytes % (auto) 7.8 %; Mean Corpuscular Hemoglobin 31.6 pg (25.0-34.0); Mean Corpuscular Hgb Conc 34.7 g/dL (32.0-36.0); Mean Platelet Volume 9.2 fL (9.4-12.4); Monocytes # (auto) 0.38 K/uL (0.11-0.59); Monocytes % (auto) 4.4 %; Neutrophils # (auto) 7.48 K/uL (1.40-6.50); Neutrophils % (auto) 87.2 %; Platelet Count 217 K/uL (130-400); Red Blood Count 3.99 M/uL (4.70-6.10); White Blood Count 8.59 K/ul (4.8-10.8)
--- NOTE | 2023-08-02 13:55 | Anesthesiology Progress Note ---
Date of Service August 02, 2023 Anesthesia Post Procedure Vital Signs Vital Signs: Temp Pulse Pulse Pulse Resp BP Pulse Ox 08/02/23 13:10 36.5 C 88 17 119/73 95 08/02/23 12:04 36.7 C 94 H 17 135/88 95 08/02/23 11:13 36.7 C 90 17 142/91 H 95 08/02/23 10:41 08/02/23 10:40 36.5 C 88 18 144/80 H 95 08/02/23 10:10 37.1 C 93 H 16 135/83 95 08/02/23 10:00 95 H 16 143/83 H 95 08/02/23 09:50 37.2 C 92 H 18 146/84 H 95 08/02/23 09:40 91 H 17 154/86 H 95 08/02/23 09:30 95 H 19 140/75 94 08/02/23 09:20 91 H 16 155/88 H 96 08/02/23 09:13 36.6 C 90 18 148/80 H 95 08/02/23 06:41 37.2 C 105 H 18 156/97 H 90 08/01/23 22:00 38 C H 86 18 124/77 94 08/01/23 20:30 08/01/23 16:09 37.6 C H 93 H 16 150/87 H 92 O2 Del Method O2 Flow Rate 08/02/23 13:10 Room Air 08/02/23 12:04 Nasal Cannula 2 08/02/23 11:13 Nasal Cannula 2 08/02/23 10:41 Nasal Cannula 2 08/02/23 10:40 Nasal Cannula 2 08/02/23 10:10 Nasal Cannula 2 08/02/23 10:00 Room Air 2 08/02/23 09:50 Room Air 2 08/02/23 09:40 Nasal Cannula 2 08/02/23 09:30 Room Air 08/02/23 09:20 Oxymask 3 08/02/23 09:13 Oxymask 6 08/02/23 06:41 Room Air 08/01/23 22:00 Room Air 08/01/23 20:30 Room Air 08/01/23 16:09 Room Air Pain Intensity Right Abdomen: Pain Intensity: 4 Abdomen: Pain Intensity: 4 Transfer of Care Handoff Completed per policy Notes Mental Status: alert / awake / arousable and participated in evaluation Patient Amnestic to Procedure: Yes Nausea / Vomiting: adequately controlled Pain: adequately controlled Airway Patency, RR, SpO2: stable & adequate BP & HR: stable & adequate Hydration State: stable & adequate Anesthetic Complications: no major complications apparent and Pt Satisfied with anesthetic care
[2023-08-02 14:02] LABS: Albumin Globulin Ratio 1.1 (0.9-2); Albumin Level 3.3 gm/dl (3.4-5.0); BUN Creatinine Ratio 12.5 (10-20); Bilirubin,Total 1.3 mg/dl (0.2-1.0); Calcium 7.7 mg/dl (8.6-10.3); Creatinine Clr Calc Pharmacy 101.5 ml/min; Est GFR (African American) 114.5 ml/min; Est GFR (Non-African American) 98.8 ml/min; Globulin 2.9 gm/dl (2.5-4.0); Potassium 3.4 mmol/L (3.5-5.1); Total Protein 6.2 gm/dl (6.0-8.3)
[2023-08-02] MEDS: MoRPHine SULFATE 2 MG/ML CARP IV PRN ×2 (17:24→21:13)
[2023-08-02] MEDS: ACETAMINOPHEN 325 MG TAB PO PRN (23:31)
[2023-08-03] MEDS: AMPICILLIN/SULBACTAM SOD 3,000 MG in SODIUM CHLOR 0.9% MINI-B 100 ML IV SCH ×4 (02:09→20:34)
[2023-08-03 08:15] LABS: Basophils # (auto) 0.01 K/uL (0.00-0.20); Basophils % (auto) 0.1 %; Eosinophils # (auto) 0.05 K/uL (0.00-0.50); Eosinophils % (auto) 0.6 %; Hematocrit (blood only) 35.3 % (42.0-52.0); Hemoglobin 12.2 g/dl (14.0-18.0); Immature Granulocytes # (auto) 0.03 K/uL (0.01-0.20); Immature Granulocytes % (auto) 0.4 %; Lymphocytes # (auto) 0.72 K/uL (1.20-3.40); Lymphocytes % (auto) 8.5 %; Mean Corpuscular Hemoglobin 31.6 pg (25.0-34.0); Mean Corpuscular Hgb Conc 34.6 g/dL (32.0-36.0); Mean Corpuscular Volume 91.5 fL (80.0-100.0); Mean Platelet Volume 9.2 fL (9.4-12.4); Monocytes # (auto) 0.56 K/uL (0.11-0.59); Monocytes % (auto) 6.6 %; Neutrophils # (auto) 7.11 K/uL (1.40-6.50); Neutrophils % (auto) 83.8 %; Platelet Count 216 K/uL (130-400); RDW Coefficient of Variation 12.1 % (11.5-14.5); RDW Standard Deviation 40.6 fL (36.4-46.3); Red Blood Count 3.86 M/uL (4.70-6.10); White Blood Count 8.48 K/ul (4.8-10.8)
[2023-08-03] MEDS: SODIUM CHLORIDE 0.9% 1,000 ML IV SCH ×3 (08:29→20:34)
[2023-08-03 08:30] LABS: Albumin Globulin Ratio 1.1 (0.9-2); Albumin Level 3.2 gm/dl (3.4-5.0); Bilirubin,Total 3.4 mg/dl (0.2-1.0); Calcium 7.7 mg/dl (8.6-10.3); Creatinine Clr Calc Pharmacy 100.3 ml/min; Est GFR (African American) 113.9 ml/min; Est GFR (Non-African American) 98.3 ml/min; Globulin 2.8 gm/dl (2.5-4.0); Potassium 3.7 mmol/L (3.5-5.1)
--- NOTE | 2023-08-03 12:00 | Surgery Progress Note ---
Date of Service August 03, 2023 Assessment & Plan (1) Acute cholecystitis: Plan: POD #1 s/p lap cholecystectomy for severe acute cholecystitis Elevated LFTs today, we will proceed with MRCP. May require ERCP Continue clear liquid diet Encourage out of bed ambulation DVT prophylaxis with SCD boots and Lovenox (2) History of DVT (deep vein thrombosis): Admission and Anticipated Discharge Date Admission Date: July 31, 2023 Subjective POD #1 s/p lap cholecystectomy for severe acute cholecystitis. Some pain and tenderness in the right upper quadrant. No nausea or vomiting. No fevers or chills. Physical Exam Physical Exam: NAD, A&O x 3 AF VSS Abdomen: Soft, mild distention TTP in RUQ/near incisions Incisions C/D/I with Dermabond Results & Data Vital Signs (Past 12 Hours) Vital Signs Temp Pulse Resp BP Pulse Ox O2 Del Method 08/03/23 07:10 36.8 C 99 H 17 151/91 H 93 Room Air 08/03/23 03:31 37.4 C 95 H 16 137/85 93 Room Air Laboratory Results 08/03/23 08/02/23 Range/Units 07:39 13:06 WBC 8.48 8.59 (4.8-10.8) K/ul RBC 3.86 L 3.99 L (4.70-6.10) M/uL Hgb 12.2 L 12.6 L (14.0-18.0) g/dl Hct 35.3 L 36.3 L (42.0-52.0) % MCV 91.5 91.0 (80.0-100.0) fL MCH 31.6 31.6 (25.0-34.0) pg MCHC 34.6 34.7 (32.0-36.0) g/dL RDW Std Deviation 40.6 40.0 (36.4-46.3) fL RDW Coeff of [place] 12.1 12.0 (11.5-14.5) % Plt Count 216 217 (130-400) K/uL MPV 9.2 L 9.2 L (9.4-12.4) fL Immature Gran % (Auto) 0.4 0.3 % Neut % (Auto) 83.8 87.2 % Lymph % (Auto) 8.5 7.8 % [place] % (Auto) 6.6 4.4 % Eos % (Auto) 0.6 0.0 % Baso % (Auto) 0.1 0.3 % Neut # (Auto) 7.11 H 7.48 H (1.40-6.50) K/uL Lymph # (Auto) 0.72 L 0.67 L (1.20-3.40) K/uL [place] # (Auto) 0.56 0.38 (0.11-0.59) K/uL Eos # (Auto) 0.05 0.00 (0.00-0.50) K/uL Baso # (Auto) 0.01 0.03 (0.00-0.20) K/uL Immature Gran # (Auto) 0.03 0.03 (0.01-0.20) K/uL Sodium 136 136 (136-145) mmol/L Potassium 3.7 3.4 L (3.5-5.1) mmol/L Chloride 106 106 (98-107) mmol/L Carbon Dioxide 25 25 (21-32) mmol/L Anion Gap 5 5 (3-11) BUN 8 11 (6-23) mg/dl Creatinine 0.89 0.88 (0.6-1.4) mg/dl Est Cr Clr Drug Dosing 100.3 101.5 ml/min Est GFR ( Amer) 113.9 114.5 ml/min Est GFR (Non-Af Amer) 98.3 98.8 ml/min BUN/Creatinine Ratio 9.0 L 12.5 (10-20) Glucose 104 H 173 H (70-99(Fasting)) mg/dl Calcium 7.7 L 7.7 L (8.6-10.3) mg/dl Total Bilirubin 3.4 H D 1.3 H (0.2-1.0) mg/dl AST 238 H 177 H (13-39) U/L ALT 242 H 166 H (7-52) U/L Alkaline Phosphatase 126 H 120 H D (34-104) U/L Total Protein 6.0 6.2 (6.0-8.3) gm/dl Albumin 3.2 L 3.3 L (3.4-5.0) gm/dl Globulin 2.8 2.9 (2.5-4.0) gm/dl Albumin/Globulin Ratio 1.1 1.1 (0.9-2)
[2023-08-03] MEDS: oxyCODONE HCL IR 5 MG TAB (IMMEDIATE RELEASE) PO PRN ×2 (12:46→18:26)
--- NOTE | 2023-08-03 15:07 | Magnetic Resonance Report ---
MR MRCP HISTORY: rising LFTs s/p lap cholecystectomy TECHNIQUE: MRCP of the abdomen was performed without contrast according to standard departmental prot ocol. COMPARISON STUDY: Abdomen and pelvis CT 07/31/2023. FINDINGS: Moderate body wall edema. Small right and trace left pleural effusions are noted. Consolida tion within the lower lobes posteriorly is nonspecific but favors compressive atelectasis from the pl eural effusions. Distended azygos vein and atrophic IVC remain unchanged. This is likely developmenta l. Interval cholecystectomy. Suboptimal evaluation of the abdomen due to motion artifact. The spleen and adrenal glands unremarkable. There is moderate bilateral perinephric edema. Bilateral peripelvic renal cysts are again noted. There is edema both within and surrounding the pancreatic head. Small am ount of fluid within the gallbladder fossa. This favors the recent postoperative change. No dilated l oops of bowel to suggest an obstruction. The common bile duct and main pancreatic duct are not well e valuated due to the significant motion artifact. However, the common bile duct appears normal in miya apoorva measuring up to 4 mm. No definite filling defects within the common bile duct to suggest choledoc holithiasis. No intrahepatic bile duct dilatation. The visualized main pancreatic duct is normal in c ourse and caliber. IMPRESSION: 1. Suboptimal evaluation due to motion artifact. 2. However, no definite filling defects within the normal caliber common bile duct to suggest choledo cholithiasis. 3. Small amount of fluid within the gallbladder fossa status post cholecystectomy. This is indetermin ate but favors expected postoperative change. 4. Mild edema both within and surrounding the pancreatic head. This could represent a mild acute panc reatitis versus postoperative change. 5. Bilateral pleural effusions. ACT 112: Negative or not required by law. Electronically signed by: Miguel Moe M.D. 08/03/2023 3:05 PM
--- NOTE | 2023-08-03 18:28 | Communication Note ---
Date of Service: August 03, 2023 MRCP demonstrates no evidence of choledocholithiasis or leak. Will recheck labs in am to determine whether he will need GI consult for possible ERCP.
[2023-08-04] MEDS: oxyCODONE HCL IR 5 MG TAB (IMMEDIATE RELEASE) PO PRN ×2 (00:15→21:00)
[2023-08-04] MEDS: AMPICILLIN/SULBACTAM SOD 3,000 MG in SODIUM CHLOR 0.9% MINI-B 100 ML IV SCH ×4 (01:37→20:51)
[2023-08-04] MEDS: SODIUM CHLORIDE 0.9% 1,000 ML IV SCH ×3 (05:50→23:45)
[2023-08-04 06:55] LABS: Basophils # (auto) 0.03 K/uL (0.00-0.20); Basophils % (auto) 0.3 %; Eosinophils % (auto) 1.1 %; Hematocrit (blood only) 33.9 % (42.0-52.0); Hemoglobin 11.6 g/dl (14.0-18.0); Immature Granulocytes # (auto) 0.06 K/uL (0.01-0.20); Immature Granulocytes % (auto) 0.6 %; Lymphocytes # (auto) 0.99 K/uL (1.20-3.40); Lymphocytes % (auto) 10.6 %; Mean Corpuscular Hemoglobin 31.3 pg (25.0-34.0); Mean Corpuscular Hgb Conc 34.2 g/dL (32.0-36.0); Mean Corpuscular Volume 91.4 fL (80.0-100.0); Mean Platelet Volume 9.5 fL (9.4-12.4); Monocytes # (auto) 0.59 K/uL (0.11-0.59); Monocytes % (auto) 6.3 %; Neutrophils # (auto) 7.59 K/uL (1.40-6.50); Neutrophils % (auto) 81.1 %; Platelet Count 231 K/uL (130-400); RDW Standard Deviation 40.1 fL (36.4-46.3); Red Blood Count 3.71 M/uL (4.70-6.10); White Blood Count 9.36 K/ul (4.8-10.8)
[2023-08-04 07:26] LABS: Albumin Globulin Ratio 1.1 (0.9-2); Albumin Level 3.2 gm/dl (3.4-5.0); BUN Creatinine Ratio 10.7 (10-20); Bilirubin Direct 0.6 mg/dl (0-0.2); Bilirubin,Total 1.4 mg/dl (0.2-1.0); Calcium 7.8 mg/dl (8.6-10.3); Creatinine Clr Calc Pharmacy 119.1 ml/min; Est GFR (African American) 122.2 ml/min; Est GFR (Non-African American) 105.5 ml/min; Globulin 2.9 gm/dl (2.5-4.0); Potassium 3.3 mmol/L (3.5-5.1); Total Protein 6.1 gm/dl (6.0-8.3)
--- NOTE | 2023-08-04 11:27 | Surgery Progress Note ---
Date of Service August 04, 2023 Assessment & Plan (1) Acute cholecystitis: Plan: POD #2 s/p lap cholecystectomy for severe acute cholecystitis LFT's are improving. MRCP was negative. will recheck in am. Likely stable for discharge tomorrow. tolerating low fat diet. Encourage out of bed ambulation DVT prophylaxis with SCD boots and Lovenox (2) History of DVT (deep vein thrombosis): Admission and Anticipated Discharge Date Admission Date: July 31, 2023 Subjective POD #2 s/p lap cholecystectomy for severe acute cholecystitis. Feels better today. Passing flatus. No nausea. Tolerating diet so far. He is bloated and has not had a bowel movement yet. MRCP was negative yesterday. LFT's are improving today. Physical Exam Constitutional: WD/WN, vitals as above Respiratory: normal respiratory effort, lungs clear to auscultation Cardiovascular: RRR, no murmur, no edema Gastrointestinal (Abdomen): Inspection/Auscultation: abdomen normal to inspection, + abdomen distended, normal bowel sounds and + abdominal surgical incision (clean) Percussion/Palpation: abdomen soft; abdomen nontender Neurologic: awake; no focal motor deficits Results & Data Vital Signs (Past 12 Hours) Vital Signs Temp Pulse Resp BP Pulse Ox O2 Del Method 08/04/23 07:20 37.1 C 100 H 18 156/89 H 92 Room Air Laboratory Results Abnormal lab results 08/04/23 Range/Units 05:49 RBC 3.71 L (4.70-6.10) M/uL Hgb 11.6 L (14.0-18.0) g/dl Hct 33.9 L (42.0-52.0) % Neut # (Auto) 7.59 H (1.40-6.50) K/uL Lymph # (Auto) 0.99 L (1.20-3.40) K/uL Potassium 3.3 L (3.5-5.1) mmol/L Calcium 7.8 L (8.6-10.3) mg/dl Total Bilirubin 1.4 H D (0.2-1.0) mg/dl Direct Bilirubin 0.6 H (0-0.2) mg/dl AST 80 H (13-39) U/L ALT 167 H (7-52) U/L Alkaline Phosphatase 123 H (34-104) U/L Albumin 3.2 L (3.4-5.0) gm/dl
[2023-08-04] MEDS ORDERED: POTASSIUM CHLORIDE CRTAB 20 MEQ TABCR PO ONE (11:30)
[2023-08-04] MEDS: ACETAMINOPHEN 325 MG TAB PO PRN (21:01)
[2023-08-05] MEDS: AMPICILLIN/SULBACTAM SOD 3,000 MG in SODIUM CHLOR 0.9% MINI-B 100 ML IV SCH ×4 (01:35→20:09)
[2023-08-05] MEDS: SODIUM CHLORIDE 0.9% 1,000 ML IV SCH (07:30)
[2023-08-05 08:00] LABS: Albumin Globulin Ratio 1.1 (0.9-2); BUN Creatinine Ratio 9.7 (10-20); Bilirubin,Total 4.5 mg/dl (0.2-1.0); Calcium 7.9 mg/dl (8.6-10.3); Est GFR (African American) 124.3 ml/min; Est GFR (Non-African American) 107.3 ml/min; Globulin 2.8 gm/dl (2.5-4.0); Potassium 3.5 mmol/L (3.5-5.1); Total Protein 5.8 gm/dl (6.0-8.3)
[2023-08-05] MEDS ORDERED: POTASSIUM CHLORIDE / WTR 10 MEQ/100 ML PLCT IV ONE (09:05)
--- NOTE | 2023-08-05 09:25 | Gastrointestinal Consultation ---
Date of Consultation August 05, 2023 Assessment & Plan (1) Elevated LFTs: Plan 53 year old male with history of DVT anticoagulated on eliquis who is POD # 3 lap ccy - GI asked to evaluate for elevated LFTs. Attempted to evaluate the patient x 2. However, he is out OOB at HIDA scan. Chart was reviewed. Tbili 1.3 --> 3.4 --> 1.4 --> 4.5 AST 177 --> 238 --> 80 --> 67 ALT 166 --> 242 --> 167 --> 134 ALKP 120 --> 126 --> 123--> 167 Given the change in his Tbili, case was discussed with on-call biliary team who recommend EUS/ERCP. Will discuss with Eder when he returns to his room. Please keep NPO. Tentative plan for EUS/ERCP if patient is agreeable after discussion of procedures/risks/benefits. Please hold Eliquis. We appreciate assistance in the management of any serological abnormality and corrections to include: hemoglobin >7, INR <2, platelets >50,000, potassium levels >3.5 but <5.3, and sodium levels within 5 points of the reference range prior to endoscopic evaluation. I was able to evaluate the patient after he returned from HIDA scan. He reports he ate breakfast (eggs, toast, fruit) around 0830. Typically NPO status after regular PO intake, will discuss with endoscopy charge nurse and biliary staff to determing timing of EUS/ERCP given the change in NPO status Supervising Physician Co-Signing Physician Notes I have personally seen and examined the patient with JUDY Menchaca. Her note reflects my exam and findings. I agree with her impression and plan. Patient is not having significant pain. Awaiting HIDA scan results. Discussed case with Dr. Prasad who does advanced endoscopic procedures as per his recommended timing for possible EUS/ERCP. Juanito Miranda MD History of Present Illness Reason for Consultation: elevated LFTs s/p CCY Requesting Physician: Dr. Leblanc Attending Physician: Geovany Leblanc, History of Present Illness 53 year old male with history of DVT anticoagulated on eliquis who is POD # 3 l ap ccy - GI asked to evaluate for elevated LFTs. Attempted to evaluate the patietn x 2. However, he is out OOB at HIDA scan. Chart was reviewed. Tbili 1.3 --> 3.4 --> 1.4 --> 4.5 AST 177 --> 238 --> 80 --> 67 ALT 166 --> 242 --> 167 --> 134 ALKP 120 --> 126 --> 123--> 167 HIDA: pending MRCP: 1. Suboptimal evaluation due to motion artifact. 2. However, no definite filling defects within the normal caliber common bile duct to suggest choledocholithiasis. 3. Small amount of fluid within the gallbladder fossa status post cholecystectomy. This is indeterminate but favors expected postoperative change. 4. Mild edema both within and surrounding the pancreatic head. This could represent a mild acute pancreatitis versus postoperative change. 5. Bilateral pleural effusions. CTAP 2022: . Cholelithiasis with acute cholecystitis. There are likely calcified gallstones in the cystic duct. Surgical evaluation is advised 2. There is no intra or extrahepatic biliary ductal dilatation. 3. Circumferential wall thickening is suggested involving the rectosigmoid colon. There is no surrounding inflammation and this is of indeterminate significance. If not recently performed, follow-up with colonoscopy is recommended for further assessment. 4. The bladder wall is circumferentially thickened. Correlate with clinical findings and urinalysis. 5. Mild cardiomegaly. 6. Additional findings as above. Allergies Allergy/AdvReac Type Severity Reaction Status Date / Time No Known Allergies Allergy Unverified 07/31/23 08:59 Home Medications Medication Instructions Recorded Confirmed Type apixaban 5 mg tablet (Eliquis) 5 mg PO BID 07/31/23 07/31/23 History sildenafil 100 mg tablet 100 - 200 mg PO DIRECTED PRN 07/31/23 07/31/23 History Other oxycodone 5 mg tablet 5 - 10 mg (1 - 2 x 5 mg) PO 08/02/23 Rx .[id number] PRN pain #15 tabs Patient History Medical History (Updated 08/05/23 @ 09:24 by JUDY Menchaca) Acute cholecystitis Encounter for pre-operative examination History of DVT (deep vein thrombosis) Social History Smoking Status: Never smoker Second Hand Exposure: No; Do You Dip or Chew Tobacco: Yes; Tobacco Cessation Education Requested by Patient: No Hx Alcohol Use: Yes Alcohol type: beer Hx Substance Use: No Preferred Language: Grenadian Communication Ability: Effective Bobbin Washer Required: No Beliefs That Will Affect Care: None Current Living Situation: Alone Other Information That Helps Us Care for You: No Feels Safe at Home: No Is there a partner from a previous relationship who is making you feel unsafe now?: No Any Concerns about Your Family Situation: No Would You Like to Speak to Someone About Your Situation: No Assistive Devices: None Review of Systems Review of Systems: N/A pt not available Physical Exam Physical Exam: N/A pt not available Results & Data Vital Signs (Past 12 Hours) Vital Signs Temp Pulse Resp BP Pulse Ox O2 Del Method 08/05/23 08:24 36.7 C 98 H 16 148/90 H 94 Room Air Laboratory Results 08/05/23 Range/Units 06:50 Sodium 137 (136-145) mmol/L Potassium 3.5 (3.5-5.1) mmol/L Chloride 107 (98-107) mmol/L Carbon Dioxide 24 (21-32) mmol/L Anion Gap 6 (3-11) BUN 7 (6-23) mg/dl Creatinine 0.72 (0.6-1.4) mg/dl Est Cr Clr Drug Dosing 124.0 ml/min Est GFR ( Amer) 124.3 ml/min Est GFR (Non-Af Amer) 107.3 ml/min BUN/Creatinine Ratio 9.7 L (10-20) Glucose 87 (70-99(Fasting)) mg/dl Calcium 7.9 L (8.6-10.3) mg/dl Total Bilirubin 4.5 H D (0.2-1.0) mg/dl AST 67 H (13-39) U/L ALT 134 H (7-52) U/L Alkaline Phosphatase 167 H (34-104) U/L Total Protein 5.8 L (6.0-8.3) gm/dl Albumin 3.0 L (3.4-5.0) gm/dl Globulin 2.8 (2.5-4.0) gm/dl Albumin/Globulin Ratio 1.1 (0.9-2)
--- NOTE | 2023-08-05 09:51 | Surgery Progress Note ---
Date of Service August 05, 2023 Assessment & Plan (1) Elevated LFTs: Plan: His LFTs are bumped again today Will make n.p.o. and get a HIDA scan to rule out bile leak GI consultation (2) Status post laparoscopic cholecystectomy: Admission and Anticipated Discharge Date Admission Date: July 31, 2023 Subjective Patient seen and examined. He is tolerating diet. Afebrile. MRCP was negative for choledocholithiasis. His pain is controlled. Physical Exam Constitutional: WD/WN, vitals as above Gastrointestinal (Abdomen): Incisions without erythema or drainage Results & Data Vital Signs (Past 12 Hours) Vital Signs Temp Pulse Resp BP Pulse Ox O2 Del Method 08/05/23 08:24 36.7 C 98 H 16 148/90 H 94 Room Air PG Care Time/CCT Total # of Minutes Spent Total Time Spent with Patient: Total time spent is greater than 50% in coordination of care (as documented) at patient's floor/unit and/or counseling patient: Coding Level of Care Code 06857 Post Operative Follow-Up Diagnoses Elevated LFTs R79.89 Status post laparoscopic cholecystectomy Z90.49
--- NOTE | 2023-08-05 10:12 | Nuclear Medicine Report ---
NM hepatobiliary CLINICAL HISTORY: 53 years-old Male with R/o bile leak. Acute right upper quadrant abdominal pain st atus post cholecystectomy TECHNIQUE: Sequential anterior abdominal images were obtained through 80 minutes following the intra venous administration of 4.4 mCi of technetium-99m Choletec. A lateral image was also obtained. COMPARISON: CT 07/31/2023 FINDINGS: There is prompt, uniform accumulation of the tracer by the liver. Only minimal excretion of tracer in to the common bile duct through 60 minutes. After the patient laid on their right side for 20 minutes , there is normal excretion of tracer into the duodenum and jejunum. The gallbladder is not visualize d and likely surgically absent. No evidence of postoperative bile leak. IMPRESSION: No scintigraphic evidence of bile leak. ACT 112: Negative or not required by law. The above report was generated using voice recognition software. It may contain grammatical, syntax o r spelling errors. Electronically signed by: Lazarus Carrillo M.D. 08/05/2023 10:11 AM
[2023-08-05] MEDS: ACETAMINOPHEN 325 MG TAB PO PRN (10:18)
[2023-08-05] MEDS ORDERED: POTASSIUM CHLORIDE / WTR 10 MEQ/100 ML PLCT IV SCH (11:45)
[2023-08-05] MEDS: D5W AND 1/2NSS + 20MEQ KCL 20 MEQ/1,000 ML BAG IV SCH ×2 (12:21→23:20)
[2023-08-05] MEDS: oxyCODONE HCL IR 5 MG TAB (IMMEDIATE RELEASE) PO PRN (20:16)
[2023-08-06] MEDS: AMPICILLIN/SULBACTAM SOD 3,000 MG in SODIUM CHLOR 0.9% MINI-B 100 ML IV SCH ×4 (02:50→20:29)
[2023-08-06 07:09] LABS: Basophils # (auto) 0.03 K/uL (0.00-0.20); Basophils % (auto) 0.4 %; Eosinophils # (auto) 0.12 K/uL (0.00-0.50); Eosinophils % (auto) 1.5 %; Hematocrit (blood only) 32.1 % (42.0-52.0); Hemoglobin 11.4 g/dl (14.0-18.0); Immature Granulocytes # (auto) 0.08 K/uL (0.01-0.20); Lymphocytes # (auto) 0.95 K/uL (1.20-3.40); Lymphocytes % (auto) 11.6 %; Mean Corpuscular Hemoglobin 31.6 pg (25.0-34.0); Mean Corpuscular Hgb Conc 35.5 g/dL (32.0-36.0); Mean Corpuscular Volume 88.9 fL (80.0-100.0); Mean Platelet Volume 9.4 fL (9.4-12.4); Monocytes # (auto) 0.51 K/uL (0.11-0.59); Monocytes % (auto) 6.2 %; Neutrophils % (auto) 79.3 %; Platelet Count 261 K/uL (130-400); RDW Coefficient of Variation 12.4 % (11.5-14.5); RDW Standard Deviation 40.3 fL (36.4-46.3); Red Blood Count 3.61 M/uL (4.70-6.10); White Blood Count 8.19 K/ul (4.8-10.8)
[2023-08-06 07:41] LABS: Albumin Globulin Ratio 1.1 (0.9-2); Albumin Level 3.1 gm/dl (3.4-5.0); BUN Creatinine Ratio 7.9 (10-20); Bilirubin,Total 4.3 mg/dl (0.2-1.0); Calcium 7.9 mg/dl (8.6-10.3); Creatinine Clr Calc Pharmacy 117.5 ml/min; Est GFR (African American) 121.6 ml/min; Est GFR (Non-African American) 104.9 ml/min; Globulin 2.8 gm/dl (2.5-4.0); Potassium 3.4 mmol/L (3.5-5.1); Total Protein 5.9 gm/dl (6.0-8.3)
[2023-08-06] MEDS: D5W AND 1/2NSS + 20MEQ KCL 20 MEQ/1,000 ML BAG IV SCH ×2 (08:00→22:57)
[2023-08-06] MEDS ORDERED: POTASSIUM CHLORIDE CRTAB 20 MEQ TABCR PO STA (08:24)
--- NOTE | 2023-08-06 08:27 | Surgery Progress Note ---
Date of Service August 06, 2023 Assessment & Plan (1) Status post laparoscopic cholecystectomy: Plan: His HIDA images and results were personally viewed and interpreted by myself No evidence for bile leak His LFTs remain elevated and he is scheduled for EUS/ERCP tomorrow with GI N.p.o. after midnight Will replace his potassium (2) Elevated LFTs: Admission and Anticipated Discharge Date Admission Date: July 31, 2023 Subjective Patient seen and examined. No nausea or vomiting. Abdominal pain controlled. Afebrile. Physical Exam Constitutional: WD/WN, vitals as above Gastrointestinal (Abdomen): Soft, appropriately tender to palpation Laparoscopic incisions erythema or drainage Results & Data Vital Signs (Past 12 Hours) Vital Signs Temp Pulse Resp BP Pulse Ox O2 Del Method 08/06/23 07:16 36.9 C 81 16 168/98 H 93 Room Air PG Care Time/CCT Total # of Minutes Spent Total Time Spent with Patient: Total time spent is greater than 50% in coordination of care (as documented) at patient's floor/unit and/or counseling patient: Coding Level of Care Code 92679 Post Operative Follow-Up Diagnoses Status post laparoscopic cholecystectomy Z90.49 Elevated LFTs R79.89
--- NOTE | 2023-08-06 09:18 | Gastroenterology Progress Note ---
Date of Service August 06, 2023 Assessment & Plan (1) Elevated LFTs: Plan 53 year old male with history of DVT anticoagulated on eliquis who is POD # 3 lap ccy - GI asked to evaluate for elevated LFTs. Attempted to evaluate the patient x 2. However, he is out OOB at HIDA scan. Chart was reviewed. Tbili 1.3 --> 3.4 --> 1.4 --> 4.5 --> 4.3 AST 177 --> 238 --> 80 --> 67 --> 64 ALT 166 --> 242 --> 167 --> 134 --> 116 ALKP 120 --> 126 --> 123--> 167 --> 172 Given the change in his Tbili, case was discussed with on-call biliary team who recommend EUS/ERCP. Please keep NPO aftermidnight for evaluation Saturday We appreciate assistance in the management of any serological abnormality and corrections to include: hemoglobin >7, INR <2, platelets >50,000, potassium levels >3.5 but <5.3, and sodium levels within 5 points of the reference range prior to endoscopic evaluation. Admission and Anticipated Discharge Date Admission Date: July 31, 2023 Supervising Physician Co-Signing Physician Notes I have personally seen and examined the patient with JUDY Menchaca. Her note reflects my exam and findings. I agree with her impression and plan. HIDA did not show biliary leak. EUS/ERCP tomorrow as per Dr. Prasad's discretion. Kim Aquino. Subjective Tolerating clear liquid diet. No abd pain. No nausea, vomiting. HIDA negative. Review of Systems Review of Systems: All systems reviewed & are unremarkable except as noted in HPI & below Physical Exam Constitutional: WD/WN, vitals as above Gastrointestinal (Abdomen): normal bowel sounds, soft, nontender, no hepatosplenomegaly Skin: + jaundice Results & Data Vital Signs (Past 12 Hours) Vital Signs Temp Pulse Resp BP Pulse Ox O2 Del Method 08/06/23 07:16 36.9 C 81 16 168/98 H 93 Room Air Laboratory Results 08/06/23 Range/Units 06:21 WBC 8.19 (4.8-10.8) K/ul RBC 3.61 L (4.70-6.10) M/uL Hgb 11.4 L (14.0-18.0) g/dl Hct 32.1 L (42.0-52.0) % MCV 88.9 (80.0-100.0) fL MCH 31.6 (25.0-34.0) pg MCHC 35.5 (32.0-36.0) g/dL RDW Std Deviation 40.3 (36.4-46.3) fL RDW Coeff of [place] 12.4 (11.5-14.5) % Plt Count 261 (130-400) K/uL MPV 9.4 (9.4-12.4) fL Immature Gran % (Auto) 1.0 % Neut % (Auto) 79.3 % Lymph % (Auto) 11.6 % Peach % (Auto) 6.2 % Eos % (Auto) 1.5 % Baso % (Auto) 0.4 % Neut # (Auto) 6.50 (1.40-6.50) K/uL Lymph # (Auto) 0.95 L (1.20-3.40) K/uL Peach # (Auto) 0.51 (0.11-0.59) K/uL Eos # (Auto) 0.12 (0.00-0.50) K/uL Baso # (Auto) 0.03 (0.00-0.20) K/uL Immature Gran # (Auto) 0.08 (0.01-0.20) K/uL Sodium 137 (136-145) mmol/L Potassium 3.4 L (3.5-5.1) mmol/L Chloride 105 (98-107) mmol/L Carbon Dioxide 26 (21-32) mmol/L Anion Gap 6 (3-11) BUN 6 (6-23) mg/dl Creatinine 0.76 (0.6-1.4) mg/dl Est Cr Clr Drug Dosing 117.5 ml/min Est GFR ( Amer) 121.6 ml/min Est GFR (Non-Af Amer) 104.9 ml/min BUN/Creatinine Ratio 7.9 L (10-20) Glucose 109 H (70-99(Fasting)) mg/dl Calcium 7.9 L (8.6-10.3) mg/dl Total Bilirubin 4.3 H (0.2-1.0) mg/dl AST 64 H (13-39) U/L ALT 116 H (7-52) U/L Alkaline Phosphatase 172 H (34-104) U/L Total Protein 5.9 L (6.0-8.3) gm/dl Albumin 3.1 L (3.4-5.0) gm/dl Globulin 2.8 (2.5-4.0) gm/dl Albumin/Globulin Ratio 1.1 (0.9-2)
[2023-08-06] MEDS ORDERED: Nursing to Pharmacy Communication SCH (20:15)
[2023-08-07] MEDS: AMPICILLIN/SULBACTAM SOD 3,000 MG in SODIUM CHLOR 0.9% MINI-B 100 ML IV SCH ×4 (01:18→19:58)
[2023-08-07 07:13] LABS: Basophils # (auto) 0.03 K/uL (0.00-0.20); Basophils % (auto) 0.3 %; Eosinophils # (auto) 0.23 K/uL (0.00-0.50); Eosinophils % (auto) 2.7 %; Hematocrit (blood only) 33.3 % (42.0-52.0); Hemoglobin 11.7 g/dl (14.0-18.0); Immature Granulocytes # (auto) 0.13 K/uL (0.01-0.20); Immature Granulocytes % (auto) 1.5 %; Lymphocytes # (auto) 1.21 K/uL (1.20-3.40); Lymphocytes % (auto) 14.1 %; Mean Corpuscular Hemoglobin 31.7 pg (25.0-34.0); Mean Corpuscular Hgb Conc 35.1 g/dL (32.0-36.0); Mean Corpuscular Volume 90.2 fL (80.0-100.0); Mean Platelet Volume 9.3 fL (9.4-12.4); Monocytes # (auto) 0.53 K/uL (0.11-0.59); Monocytes % (auto) 6.2 %; Neutrophils # (auto) 6.47 K/uL (1.40-6.50); Neutrophils % (auto) 75.2 %; Platelet Count 291 K/uL (130-400); RDW Coefficient of Variation 12.6 % (11.5-14.5); RDW Standard Deviation 41.7 fL (36.4-46.3); Red Blood Count 3.69 M/uL (4.70-6.10)
[2023-08-07 07:36] LABS: Bilirubin,Total 1.6 mg/dl (0.2-1.0)
[2023-08-07 07:37] LABS: Albumin Globulin Ratio 1.1 (0.9-2); Albumin Level 3.2 gm/dl (3.4-5.0); BUN Creatinine Ratio 6.4 (10-20); Calcium 8.2 mg/dl (8.6-10.3); Creatinine Clr Calc Pharmacy 114.5 ml/min; Est GFR (African American) 120.3 ml/min; Est GFR (Non-African American) 103.8 ml/min; Potassium 3.8 mmol/L (3.5-5.1); Total Protein 6.2 gm/dl (6.0-8.3)
--- NOTE | 2023-08-07 08:13 | Surgery Progress Note ---
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 Reports at d/c he is planning to drive himself back to [place]. Told patient he will need to follow up with his PCP in [place], and depending on what GI recommends post procedure he may need to follow up with a GI specialist in [place] if he does not plan on coming back to [place]. Patient is aware, and verbalized understanding. Take Eliquis 5mg BID for history of DVT , this has been held since 07/31/23. (2) Elevated LFTs: Plan: Scheduled for EUS/ERCP Reports he feels fine, is tired of waiting, thought about just leaving. Discussed with patient his LFTs are elevated and reassured him he will have his procedure today. T. Bili 1.6 (4.3) AST 36 (64) ALT 92(116) Alk. Phos. 164 (172) Admission and Anticipated Discharge Date Admission Date: July 31, 2023 Supervising Physician Co-Signing Physician Notes I personally saw and evaluated the patient with Jose KIM and agree with the assessment and plan. 53-year-old male with s/p lap felicita with elevated LFT's EUS/ERCP today Can likely go home tomorrow Subjective Patient denies abdominal pain, N/V scheduled for an EUS/ERCP today Reports he feels fine, is tired of waiting, thought about just leaving. Discussed with patient his LFTs are elevated and reassured him he will have his procedure today. Review of Systems Constitutional: no fever and no chills Eyes: + corrective lenses Ear, Nose, Mouth, Throat: no ear pain and no hearing loss Respiratory: no dyspnea Cardiovascular: no chest pain Gastrointestinal: no abdominal pain, no nausea and no vomiting Genitourinary: no problem reported Musculoskeletal: no muscle weakness Integumentary: no rash, no skin ulcer and no erythema Neurologic: no gait abnormality and no headache(s) Psychiatric: no behavioral changes and no depression Hematologic / Lymphatic: no easy bleeding and no easy bruising Physical Exam Physical Exam: alert oriented Constitutional: cooperative and comfortable; no acute distress Respiratory: normal respiratory effort and able to speak in complete sentences; no respiratory distress Cardiovascular: Rate/Rhythm: regular rate Gastrointestinal (Abdomen): Inspection/Auscultation: + abdominal surgical incision (dermabond, CDI); abdomen not distended Percussion/Palpation: abdomen soft; abdomen nontender and no guarding Results & Data Vital Signs (Past 12 Hours) Vital Signs Temp Pulse Resp BP Pulse Ox O2 Del Method 08/07/23 07:27 98.4 F 72 16 143/87 H 96 Room Air 08/06/23 22:30 97.7 F 81 18 161/101 H 96 Room Air PG Care Time/CCT Total # of Minutes Spent Total Time Spent with Patient: Total time spent is greater than 50% in coordination of care (as documented) at patient's floor/unit and/or counseling patient: Coding Level of Care Code 49702 Post Operative Follow-Up Diagnoses Status post laparoscopic cholecystectomy Z90.49 Elevated LFTs R79.89
--- NOTE | 2023-08-07 08:30 | Anesthesiology Consultation ---
Date of Service August 07, 2023 Assessment & Plan (1) Encounter for pre-operative examination: Chart Review Chart Review: Acceptable Risk for Surgery History Surgery Operation Date: 08/02/23 07:15 Proposed Procedures p Laparoscopic Cholecystectomy Possible Open Possible Cholangiogram - Geovany Leblanc DO Operation Date: 08/07/23 12:30 Proposed Procedures p Possible Endoscopic Retrograde Cholangiopancreatogram - Romy Prasad DO s Endoscopic Retrograde Cholangiopancreato - Romy Prasad DO Height/Weight Height: 5 ft 7 in Weight: 83.5 kg Allergies Allergy/AdvReac Type Severity Reaction Status Date / Time No Known Allergies Allergy Unverified 07/31/23 08:59 Medications Home Medications Medication Instructions Recorded Confirmed Last Taken apixaban 5 mg tablet (Eliquis) 5 mg PO BID 07/31/23 07/31/23 Unknown sildenafil 100 mg tablet 100 - 200 mg PO DIRECTED PRN 07/31/23 07/31/23 Unknown Other oxycodone 5 mg tablet 5 - 10 mg (1 - 2 x 5 mg) PO 08/02/23 Unknown .[id number] PRN pain #15 tabs Active Medications Generic Name Dose Route Start Last Admin Trade Name Freq PRN Reason Stop Dose Admin Acetaminophen 650 mg 07/31/23 13:48 08/05/23 10:18 Acetaminophen 325 Mg Tab PO 08/30/23 13:47 650 mg Q6H PRN Administration Mild Pain (Scale 1, 2, 3) Ampicillin Sodium/Sulbactam 100 mls @ 100 mls/hr 07/31/23 14:00 08/07/23 07:48 Sodium 3,000 mg/ Sodium IV 08/10/23 13:59 100 mls/hr Chloride Q6H RADHA Administration Protocol Potassium Chloride/Dextrose/Sod Cl 20 meq in 1,000 mls @ 100 mls/hr 08/05/23 11:45 08/06/23 22:57 D5w And 1/2nss + 20meq Kcl IV 09/04/23 11:44 100 mls/hr .Q10H RADHA Administration Morphine Sulfate 2 mg 07/31/23 13:48 08/02/23 21:13 Morphine Sulfate 2 Mg/Ml Carp IV 08/14/23 13:47 2 mg Q3H PRN Administration Pain (1,2,3,4,5) & Pre PT Oxycodone HCl 10 mg 07/31/23 13:48 08/05/23 20:16 Oxycodone Hcl Ir 5 Mg Tab (Immediate Release) PO 08/14/23 13:47 10 mg Q4H PRN Administration SEVERE Pain (7,8,9,10) Oxycodone HCl 5 mg 07/31/23 13:48 08/02/23 11:30 Oxycodone Hcl Ir 5 Mg Tab (Immediate Release) PO 08/14/23 13:47 5 mg Q4H PRN Administration MODERATE Pain (4,5,6) & Pre PT NPO Date Last Intake of Fluids: 08/01/23 Time Last Intake of Fluids: 23:00 Date Last Intake of Solids: 08/01/23 Time Last Intake of Solids: 23:00 Past Medical History Medical History (Updated 08/07/23 @ 08:29 by Preston Stokes MD) Acute cholecystitis History of DVT (deep vein thrombosis) Past Surgical History Surgical History (Updated 08/07/23 @ 08:30 by Preston Stokes MD) Hx laparoscopic cholecystectomy Social History Smoking Status: Never smoker Do You Dip or Chew Tobacco: Yes Hx Alcohol Use: Yes Alcohol type: beer alcohol intake frequency: a few times a week Hx Substance Use: No Physical Exam Vital Signs Last Vital Signs Temp 36.9 C 08/07/23 07:27 Pulse 72 08/07/23 07:27 Resp 16 08/07/23 07:27 BP 143/87 H 08/07/23 07:27 Pulse Ox 96 08/07/23 07:27 O2 Del Method Room Air 08/07/23 07:27 O2 Flow Rate 2 08/02/23 12:04 Testing Laboratory Results 08/07/23 06:49 08/07/23 06:49 Urine Color Dark Yellow 07/31/23 07:30 Urine Appearance Cloudy (Clear) A 07/31/23 07:30 Urine pH 6.0 (4.5-7.5) 07/31/23 07:30 Ur Specific [place] 1.035 (1.000-1.030) H 07/31/23 07:30 Urine Protein Trace (Negative) H 07/31/23 07:30 Urine Glucose (UA) Negative (Negative) 07/31/23 07:30 Urine Ketones Trace (Negative) H 07/31/23 07:30 Urine Nitrite Negative (Negative) 07/31/23 07:30 Ur Leukocyte Esterase Negative (Negative) 07/31/23 07:30 Urine WBC (Auto) 1-5 /hpf (0-5) 07/31/23 07:30 Urine RBC (Auto) 5-10 /hpf (0-4) H 07/31/23 07:30 U Hyaline Cast (Auto) 1-5 /lpf (0-5) 07/31/23 07:30 U Epithel Cells (Auto) 10-20 /lpf (0-5) H 07/31/23 07:30 Urine Bacteria (Auto) Negative (Negative) 07/31/23 07:30
[2023-08-07] MEDS: D5W AND 1/2NSS + 20MEQ KCL 20 MEQ/1,000 ML BAG IV SCH ×2 (08:42→22:45)
--- NOTE | 2023-08-07 10:00 | Communication Note ---
Date of Service: August 07, 2023 Pt was seen and evaluated, chart reviewed. Remains NPO for ERCP evaluation. Risks, benefits and alternatives discussed, he verbalized understanding. We appreciate assistance in the management of any serological abnormality and corrections to include: hemoglobin >7, INR <2, platelets >50,000, potassium levels >3.5 but <5.3, and sodium levels within 5 points of the reference range prior to endoscopic evaluation. Thank you for allowing us to participate in the care of this patient. Please call with any acute changes, questions or concerns. Please see addendum below with additional recommendation from my supervising physician.
[2023-08-07] MEDS ORDERED: LACTATED RINGER'S 1,000 ML IV SCH (12:00)
[2023-08-07] MEDS ORDERED: HYDROmorphone INJ 1 MG/ML SYRINGE IV PRN (12:04)
[2023-08-07] MEDS ORDERED: ONDANSETRON INJ 2 MG/ML 2 ML VIAL IV PRN (12:04)
[2023-08-07] MEDS ORDERED: fentaNYL citrate PF 100 MCG/2 ML VIAL IV PRN (12:04)
[2023-08-07] MEDS ORDERED: PROMETHAZINE HCL 6.25 MG in SODIUM CHLORIDE 0.9% 50 ML IV PRN (12:04)
[2023-08-07] MEDS ORDERED: ATROPINE SULFATE 0.1 MG/ML 10ML SYR IV PRN (12:04)
[2023-08-07] MEDS ORDERED: ePHEDrine sulfate 50 MG/ML AMP IV PRN (12:04)
[2023-08-07] MEDS ORDERED: fentaNYL citrate PF 100 MCG/2 ML VIAL ONE ×2 (12:20→12:56)
[2023-08-07] MEDS ORDERED: MIDAZOLAM HCL 1 MG/ML 2ML VIAL ONE (12:20)
--- NOTE | 2023-08-07 12:20 | History & Physical Bridge Note ---
Date of Service August 07, 2023 History & Physical Bridge Note I have examined the patient, reviewed the History & Physical and in the interval since the performance of the History & Physical I have noted the following changes of clinical significance: no changes noted We are planning to do upper endoscopy with endoscopic ultrasound and possibly ERCP today for suspected retained choledocholithiasis. I discussed the risks of the procedure with the patient to include bleeding infection perforation pain a nd need for follow-up studies.
[2023-08-07] MEDS ORDERED: PROPOFOL IV EMULSION 10 MG/ML 20 ML VIAL IV ONE (12:21)
[2023-08-07] MEDS ORDERED: LIDOCAINE 2% 2 ML VIAL/AMP(20MG/ML) INFIL ONE (12:21)
[2023-08-07] MEDS ORDERED: ONDANSETRON INJ 2 MG/ML 2 ML VIAL ONE (12:21)
[2023-08-07] MEDS ORDERED: INDOMETHACIN 50 MG SUPP PR ONE (12:30)
--- NOTE | 2023-08-07 12:43 | GI REPORT ---
Patient Name: Eder Rosales Procedure Date: 08/07/2023 12:32 PM Date of : 1970 Admit Type: Inpatient Age: 53 Gender: Male Attending MD: Romy Prasad DO, Procedure: Upper GI endoscopy Providers: Romy Prasad DO Referring MD: Geovany Leblanc Do Indications: Epigastric abdominal pain Medicines: Monitored Anesthesia Care Complications: No immediate complications. Estimated blood loss: Minimal. Estimated Blood Loss: Estimated blood loss was minimal. Procedure: Pre-Anesthesia Assessment: - Prior to the procedure, a History and Physical was performed, and patient medications, allergies and sensitivities were reviewed. The patient's tolerance of previous anesthesia was reviewed. - The risks and benefits of the procedure and the sedation options and risks were discussed with the patient. All questions were answered and informed consent was obtained. - Patient identification and proposed procedure were verified prior to the procedure by the physician, the nurse and the supervisor shop. The procedure was verified in the procedure room. - Pre-procedure physical examination revealed no contraindications to sedation. - ASA Grade Assessment: III - A patient with severe systemic disease. - After reviewing the risks and benefits, the patient was deemed in satisfactory condition to undergo the procedure. - The anesthesia plan was to use monitored anesthesia care (MAC). - Immediately prior to administration of medications, the patient was re-assessed for adequacy to receive sedatives. - The heart rate, respiratory rate, oxygen saturations, blood pressure, adequacy of pulmonary ventilation, and response to care were monitored throughout the procedure. - The physical status of the patient was re-assessed after the procedure. After obtaining informed consent, the endoscope was passed under direct vision. Throughout the procedure, the patient's blood pressure, pulse, and oxygen saturations were monitored continuously. The Endoscope was introduced through the mouth, and advanced to the third part of duodenum. The upper GI endoscopy was accomplished without difficulty. The patient tolerated the procedure well. Findings: The examined esophagus was normal. The Z-line was regular and was found 39 cm from the incisors. The entire examined stomach was normal. The examined duodenum was normal. Impression: - Normal esophagus. - Z-line regular, 39 cm from the incisors. - Normal stomach. - Normal examined duodenum. - No specimens collected. Recommendation: - Perform an upper endoscopic ultrasound (UEUS) today. Romy Prasad D.O. Romy Prasad, 08/07/2023 12:42:45 PM This report has been signed electronically. Note Initiated On: 08/07/2023 12:32 PM Number of Addenda: 0 I attest to the content of the Intraoperative Record and orders documented therein, exceptions below {[id number]}
[2023-08-07] MEDS ORDERED: LABETALOL HCL IV 5 MG/ML 20ML IV ONE (13:06)
--- NOTE | 2023-08-07 13:31 | Communication Note ---
Date of Service: August 07, 2023 Endoscopy endoscopic ultrasound and ultimately ERCP today. The patient was found to have evidence of choledocholithiasis in addition to a 24 mm seroma in the region of his gallbladder fossa. 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 Recommendations Complete a 10-day course of antibiotics per general surgery Clear liquid diet today Avoid Non-Steroidals and anticoagulation for 5 days Patient will need follow-up with a web content writer closer to home for removal stent and pancreatic stent in 6 to 8 weeks.
--- NOTE | 2023-08-07 13:31 | Post Operative Brief Note ---
Immediate Post Op Note v1 Date of Surgery August 07, 2023 Pre & Post Diagnosis Operation Date: 08/07/23 12:30 Pre-Op Diagnosis: Choledocoholithiasis I identified the patient and participated in the time-out.: Yes Procedure Operation Date: 08/07/23 12:30 Actual Procedures p Esophagogastroduodenoscopy - Romy Prasad DO p Endoscopic Ultrasonography Upper - Romy Prasad DO s Endoscopic Retrograde Cholangiopancreato - Romy Prasad DO Surgeon Romy Prasad, Poultry Service Technician Jose KIM Estimated Blood Loss 50 Findings Consistent with Post-Op Diagnosis Anesthesia Type General
[2023-08-07] MEDS ORDERED: GLYCOPYRROLATE 0.2 MG/ML VIAL ONE (13:33)
--- NOTE | 2023-08-07 13:39 | GI REPORT ---
Patient Name: Eder Rosales Procedure Date: 08/07/2023 12:42 PM Date of : 1970 Admit Type: Inpatient Age: 53 Gender: Male Attending MD: Romy Prasad DO, Procedure: Upper EUS Providers: Romy Prasad DO Referring MD: Geovany Leblanc Do Indications: Elevated liver enzymes, Suspected choledocholithiasis Medicines: Monitored Anesthesia Care Complications: No immediate complications. Estimated blood loss: Minimal. Estimated Blood Loss: Estimated blood loss: none. Procedure: Pre-Anesthesia Assessment: - Prior to the procedure, a History and Physical was performed, and patient medications, allergies and sensitivities were reviewed. The patient's tolerance of previous anesthesia was reviewed. - The risks and benefits of the procedure and the sedation options and risks were discussed with the patient. All questions were answered and informed consent was obtained. - Patient identification and proposed procedure were verified prior to the procedure by the physician, the nurse and the environmental manager. The procedure was verified in the procedure room. - Pre-procedure physical examination revealed no contraindications to sedation. - ASA Grade Assessment: II - A patient with mild systemic disease. - After reviewing the risks and benefits, the patient was deemed in satisfactory condition to undergo the procedure. - The anesthesia plan was to use monitored anesthesia care (MAC). - Immediately prior to administration of medications, the patient was re-assessed for adequacy to receive sedatives. - The heart rate, respiratory rate, oxygen saturations, blood pressure, adequacy of pulmonary ventilation, and response to care were monitored throughout the procedure. - The physical status of the patient was re-assessed after the procedure. After obtaining informed consent, the endoscope was passed under direct vision. Throughout the procedure, the patient's blood pressure, pulse, and oxygen saturations were monitored continuously. The Scope was introduced through the mouth, and advanced to the third part of duodenum. The upper EUS was accomplished without difficulty. The patient tolerated the procedure well. Findings: ENDOSONOGRAPHIC FINDING: : There was no sign of significant endosonographic abnormality in the ampulla. No masses were identified. There was no sign of significant endosonographic abnormality in the visualized portion of the liver. Homogeneous parenchyma and no focal pathology were identified. There was no sign of significant endosonographic abnormality in the entire pancreas. No masses, no cysts, the pancreatic duct was thin in caliber. No lymphadenopathy seen. There was no sign of significant endosonographic abnormality in the left adrenal gland. No adrenal gland enlargement was identified. Evidence of a previous cholecystectomy was identified endosonographically, a 24 mm seroma was seen in the region of the gallbladder fossa.. One stone was visualized endosonographically in the lower third of the main bile duct. The stone measured 5 mm in greatest dimension. It was hyperechoic. Impression: - There was no sign of significant pathology in the ampulla. - There was no evidence of significant pathology in the visualized portion of the liver. - There was no sign of significant pathology in the entire pancreas. - Endosonographic images of the left adrenal gland were unremarkable. - Evidence of a cholecystectomy. - One stone was visualized endosonographically in the lower third of the main bile duct. - No specimens collected. Recommendation: - Perform an ERCP today. Romy Prasad D.O. Romy Prasad, 08/07/2023 1:38:16 PM This report has been signed electronically. Note Initiated On: 08/07/2023 12:42 PM Number of Addenda: 0 I attest to the content of the Intraoperative Record and orders documented therein, exceptions below {[id number]}
--- NOTE | 2023-08-07 13:44 | GI REPORT ---
Patient Name: Eder Rosales Procedure Date: 08/07/2023 12:50 PM Date of : 1970 Admit Type: Inpatient Age: 53 Gender: Male Attending MD: Romy Prasad DO, Procedure: ERCP Providers: Romy Prasad DO Referring MD: Geovany Leblanc Do Indications: Abdominal pain of suspected biliary origin, For therapy of bile duct stone(s) Medicines: Monitored Anesthesia Care Complications: No immediate complications. Estimated blood loss: Minimal. Estimated Blood Loss: Estimated blood loss was minimal. Procedure: Pre-Anesthesia Assessment: - Prior to the procedure, a History and Physical was performed, and patient medications, allergies and sensitivities were reviewed. The patient's tolerance of previous anesthesia was reviewed. - The risks and benefits of the procedure and the sedation options and risks were discussed with the patient. All questions were answered and informed consent was obtained. - Patient identification and proposed procedure were verified prior to the procedure by the physician, the nurse and the golf course equipment operator. The procedure was verified in the procedure room. - Pre-procedure physical examination revealed no contraindications to sedation. - ASA Grade Assessment: II - A patient with mild systemic disease. - After reviewing the risks and benefits, the patient was deemed in satisfactory condition to undergo the procedure. - The anesthesia plan was to use monitored anesthesia care (MAC). - Immediately prior to administration of medications, the patient was re-assessed for adequacy to receive sedatives. - The heart rate, respiratory rate, oxygen saturations, blood pressure, adequacy of pulmonary ventilation, and response to care were monitored throughout the procedure. - The physical status of the patient was re-assessed after the procedure. After obtaining informed consent, the scope was passed under direct vision. Throughout the procedure, the patient's blood pressure, pulse, and oxygen saturations were monitored continuously. The Duodenoscope was introduced through the mouth, and advanced to the duodenum and used to inject contrast into the bile duct and ventral pancreatic duct. The ERCP was accomplished without difficulty. The patient tolerated the procedure well. Findings: A electrical manager film of the abdomen was obtained. Surgical clips, consistent with a previous cholecystectomy, were seen in the area of the right upper quadrant of the abdomen. The esophagus was successfully intubated under direct vision without detailed examination of the pharynx, larynx, and associated structures, and upper GI tract. The upper GI tract was grossly normal. The major papilla was normal. The ventral pancreatic duct was inadvertently cannulated with the short-nosed traction sphincterotome and guidewire without any complications, it was left in place to aid in biliary cannulation with a double wire technique and later place a prophylactic pancreatic stent. The bile duct was deeply cannulated with the short-nosed traction sphincterotome and a second 0.035 in Acrobat 2 guidewire. Contrast was injected. I personally interpreted the bile duct images. Contrast extended to the hepatic ducts. A cholecystectomy had been performed. The biliary orifice was stenotic. This appeared benign. The lower third of the main bile duct contained filling defect(s) thought to be a stone and sludge which was obstructing the distal common bile duct. Biliary sphincterotomy was made with a monofilament Fusion OMNI sphincterotome using ERBE electrocautery. There was no post-sphincterotomy bleeding. To discover objects, the biliary tree was swept with a 12 mm balloon starting at the bifurcation. Sludge was swept from the duct. One stone was removed. No stones remained, follow-up cholangiogram revealed a mild tapering of the distal duct suspicious for papillary stenosis. One 5 Fr by 7 cm pancreatic stent with a full external pigtail and no internal flaps was placed 7 cm into the ventral pancreatic duct. Clear fluid flowed through the stent. The stent was in good position. One 10 Fr by 7 cm biliary stent with a single external flap and a single internal flap was placed 7 cm into the common bile duct. Bile flowed through the stent. The stent was in good position. The endoscope was withdrawn from the patient. Indomethacin 100 mg was given via suppository to decrease the risk of post-ERCP pancreatitis (PEP). Impression: - The major papilla appeared normal. - Biliary papillary stenosis, benign. - The patient has had a cholecystectomy. - Choledocholithiasis was found. Complete removal was accomplished by biliary sphincterotomy and balloon extraction. - One pancreatic stent was placed into the ventral pancreatic duct. - One biliary stent was placed into the common bile duct. - Indomethacin given to decrease risk of post-ERCP pancreatitis. Recommendation: - Clear liquid diet today. - Avoid aspirin and nonsteroidal anti-inflammatory medicines for 5 days. - Repeat ERCP in 6 weeks to remove stent and ensure resolution of the stricture in the distal CBD. [place] he will likely need to seek care closer to home. Romy Prasad D.O. Romy Prasad, DO 08/07/2023 1:44:15 PM This report has been signed electronically. Note Initiated On: 08/07/2023 12:50 PM Number of Addenda: 0 I attest to the content of the Intraoperative Record and orders documented therein, exceptions below {[id number]}
--- NOTE | 2023-08-07 14:17 | Fluoroscopy Report ---
[place] ERCP biliary ductal CLINICAL HISTORY: ERCP IN ORacute right upper quadrant abdominal pain COMPARISON STUDY: CT 07/31/2023 FLUOROSCOPY TIME: 28.8 seconds FLUOROSCOPY IMAGES: 7 EXPOSURE DOSE: 8.47 mGy FINDINGS: Endoscope is noted within the duodenum. There is retrograde cannulation of the common bile duct with injection of contrast. Remnant cystic duct with cholecystectomy noted. No significant bilia ry ductal dilation, stricturing or filling defects identified. Subsequent images demonstrate placemen t of common bile and pancreatic duct stents which appear to be in satisfactory positioning. IMPRESSION: Fluoroscopic assistance as above. ACT 112: Negative or not required by law. Electronically signed by: Lazarus Carrillo M.D. 08/07/2023 2:16 PM
--- NOTE | 2023-08-07 15:50 | Anesthesiology Progress Note ---
Date of Service August 07, 2023 Anesthesia Post Procedure Vital Signs Vital Signs: Temp Pulse Pulse Pulse Resp BP BP 08/07/23 14:15 37.1 C 70 18 158/97 H 08/07/23 13:40 70 16 151/99 H 08/07/23 13:30 81 13 145/90 H 08/07/23 13:22 36.3 C L 87 16 147/106 H 08/07/23 11:49 36.9 C 70 18 166/95 H 08/07/23 08:30 08/07/23 07:27 36.9 C 72 16 143/87 H 08/06/23 22:30 36.5 C 81 18 161/101 H 08/06/23 19:30 Pulse Ox O2 Del Method O2 Flow Rate 08/07/23 14:15 93 Room Air 08/07/23 13:40 97 Oxymask 3 08/07/23 13:30 100 Oxymask 5 08/07/23 13:22 100 Oxymask 7 08/07/23 11:49 96 Room Air 08/07/23 08:30 Room Air 08/07/23 07:27 96 Room Air 08/06/23 22:30 96 Room Air 08/06/23 19:30 Room Air Pain Intensity Right Abdomen: Pain Intensity: 4 Abdomen: Pain Intensity: 5 Bilateral Head: Pain Intensity: 0 Transfer of Care Handoff Completed per policy Notes Mental Status: alert / awake / arousable and participated in evaluation Patient Amnestic to Procedure: Yes Nausea / Vomiting: adequately controlled Pain: adequately controlled Airway Patency, RR, SpO2: stable & adequate BP & HR: stable & adequate Hydration State: stable & adequate Anesthetic Complications: no major complications apparent and Pt Satisfied with anesthetic care
[2023-08-08] MEDS: AMPICILLIN/SULBACTAM SOD 3,000 MG in SODIUM CHLOR 0.9% MINI-B 100 ML IV SCH ×2 (02:18→08:00)
--- NOTE | 2023-08-08 07:30 | Surgery Progress Note ---
Date of Service August 08, 2023 Assessment & Plan (1) Status post laparoscopic cholecystectomy: Plan: POD 6 Lap [place], POD 1 EUS/ERCP stent placement x 2 Patient denies abdominal pain, has not taking any pain medication, N/V, tolerating clear liquid diet and had crackers last night without issue. post operative port sites covered with dermabond, CDI, no s/s of infection noted Waiting on AM CBC and CMP Takes Eliquis 5mg BID for history of DVT , this has been held since 07/31/23. He can resume on 08/12/23 per GI recommendations. Will need outpatient f/u in [place] with a surgeon, PCP, and GI specialist for stent removal, 2 weeks of PO antibiotics, pt verbalized understanding Will D/C pending AM lab results Admission and Anticipated Discharge Date Admission Date: July 31, 2023 Subjective Patient denies abdominal pain, N/V, SOB, CP no complaints. Review of Systems 2 Constitutional: no fever and no chills Eyes: + corrective lenses Ear, Nose, Mouth, Throat: no ear pain and no hearing loss Respiratory: no dyspnea Cardiovascular: no chest pain Gastrointestinal: no abdominal pain, no nausea and no vomiting Genitourinary: no problem reported Musculoskeletal: no muscle weakness Integumentary: no rash, no skin ulcer and no erythema Neurologic: no gait abnormality and no headache(s) Psychiatric: no behavioral changes and no depression Hematologic / Lymphatic: no problem reported Physical Exam Physical Exam: alert oriented Constitutional: cooperative and comfortable; no acute distress Respiratory: normal respiratory effort and able to speak in complete sentences; no respiratory distress Cardiovascular: Rate/Rhythm: regular rate Gastrointestinal (Abdomen): Inspection/Auscultation: + abdominal surgical incision (dermabond, CDI); abdomen not distended Percussion/Palpation: abdomen soft; abdomen nontender and no guarding Neurologic: awake; not confused Psychiatric: A+Ox3, euthymic affect Orientation: oriented x 3 and c ooperative Results & Data Vital Signs (Past 12 Hours) Vital Signs Temp Pulse Resp BP Pulse Ox O2 Del Method 08/08/23 02:22 98.1 F 63 18 135/82 94 Room Air 08/07/23 22:55 98.6 F 66 18 136/85 95 Room Air 08/07/23 19:42 98.4 F 59 L 18 136/88 96 Room Air PG Care Time/CCT Total # of Minutes Spent Total Time Spent with Patient: Total time spent is greater than 50% in coordination of care (as documented) at patient's floor/unit and/or counseling patient: Coding Level of Care Code 76456 Post Operative Follow-Up Diagnoses Status post laparoscopic cholecystectomy Z90.49
[2023-08-08 07:59] LABS: Basophils # (auto) 0.03 K/uL (0.00-0.20); Basophils % (auto) 0.4 %; Eosinophils # (auto) 0.33 K/uL (0.00-0.50); Eosinophils % (auto) 4.2 %; Hematocrit (blood only) 35.3 % (42.0-52.0); Hemoglobin 11.9 g/dl (14.0-18.0); Immature Granulocytes # (auto) 0.18 K/uL (0.01-0.20); Immature Granulocytes % (auto) 2.3 %; Lymphocytes # (auto) 1.17 K/uL (1.20-3.40); Lymphocytes % (auto) 14.8 %; Mean Corpuscular Hemoglobin 31.3 pg (25.0-34.0); Mean Corpuscular Hgb Conc 33.7 g/dL (32.0-36.0); Mean Corpuscular Volume 92.9 fL (80.0-100.0); Mean Platelet Volume 9.5 fL (9.4-12.4); Monocytes # (auto) 0.51 K/uL (0.11-0.59); Monocytes % (auto) 6.4 %; Neutrophils % (auto) 71.9 %; Platelet Count 318 K/uL (130-400); RDW Coefficient of Variation 13.1 % (11.5-14.5); RDW Standard Deviation 44.2 fL (36.4-46.3); White Blood Count 7.92 K/ul (4.8-10.8)
[2023-08-08 08:16] LABS: Albumin Level 3.2 gm/dl (3.4-5.0); BUN Creatinine Ratio 5.6 (10-20); Bilirubin,Total 1.2 mg/dl (0.2-1.0); Calcium 8.4 mg/dl (8.6-10.3); Creatinine Clr Calc Pharmacy 125.8 ml/min; Est GFR (Non-African American) 107.9 ml/min; Globulin 3.1 gm/dl (2.5-4.0); Total Protein 6.3 gm/dl (6.0-8.3)
--- NOTE | 2023-08-08 08:26 | Communication Note ---
Date of Service: August 08, 2023 CBC wnl LFT downtrending Stable for D/c if tolerating breakfast and lunch without n/v.
[2023-08-08] MEDS: D5W AND 1/2NSS + 20MEQ KCL 20 MEQ/1,000 ML BAG IV SCH (08:46)
--- NOTE | 2023-08-08 09:28 | Gastroenterology Progress Note ---
Date of Service August 08, 2023 Assessment & Plan (1) Elevated LFTs: Plan 53 year old male with history of DVT anticoagulated on eliquis w/ elevated LFTS s/p CCY s/p ERCP for treatment of CBD stone, PD and CBD stent placed. Clinically feeling well, LFTs improving this AM. No GI contraindication to diet No GI contraindication to discharge Complete a 10-day course of antibiotics per general surgery Avoid NSAIDs and anticoagulation for 5 days Instructed to follow-up with a director college closer to home for removal stent and pancreatic stent in 6 to 8 weeks Recall as needed. Thank you for allowing us to participate in the care of this patient. Please call with any acute changes, questions or concerns. Please see addendum below with additional recommendation from my supervising physician. Admission and Anticipated Discharge Date Admission Date: July 31, 2023 Subjective Feeling well. No abd pain. No nausea, vomiting. Tolerating diet. No fever, chills, CP, SOB. Review of Systems Review of Systems: All systems reviewed & are unremarkable except as noted in HPI & below Physical Exam Constitutional: WD/WN, vitals as above Gastrointestinal (Abdomen): normal bowel sounds, soft, nontender, no hepatosplenomegaly Results & Data Vital Signs (Past 12 Hours) Vital Signs Temp Pulse Pulse Resp BP Pulse Ox O2 Del Method 08/08/23 08:11 36.8 C 68 18 149/87 H 96 Room Air 08/08/23 08:06 Room Air 08/08/23 02:22 36.7 C 63 18 135/82 94 Room Air 08/07/23 22:55 37.0 C 66 18 136/85 95 Room Air Laboratory Results 08/08/23 Range/Units 07:20 WBC 7.92 (4.8-10.8) K/ul RBC 3.80 L (4.70-6.10) M/uL Hgb 11.9 L (14.0-18.0) g/dl Hct 35.3 L (42.0-52.0) % MCV 92.9 (80.0-100.0) fL MCH 31.3 (25.0-34.0) pg MCHC 33.7 (32.0-36.0) g/dL RDW Std Deviation 44.2 (36.4-46.3) fL RDW Coeff of [place] 13.1 (11.5-14.5) % Plt Count 318 (130-400) K/uL MPV 9.5 (9.4-12.4) fL Immature Gran % (Auto) 2.3 % Neut % (Auto) 71.9 % Lymph % (Auto) 14.8 % [place] % (Auto) 6.4 % Eos % (Auto) 4.2 % Baso % (Auto) 0.4 % Neut # (Auto) 5.70 (1.40-6.50) K/uL Lymph # (Auto) 1.17 L (1.20-3.40) K/uL [place] # (Auto) 0.51 (0.11-0.59) K/uL Eos # (Auto) 0.33 (0.00-0.50) K/uL Baso # (Auto) 0.03 (0.00-0.20) K/uL Immature Gran # (Auto) 0.18 (0.01-0.20) K/uL Sodium 139 (136-145) mmol/L Potassium 4.0 (3.5-5.1) mmol/L Chloride 108 H (98-107) mmol/L Carbon Dioxide 25 (21-32) mmol/L Anion Gap 6 (3-11) BUN 4 L (6-23) mg/dl Creatinine 0.71 (0.6-1.4) mg/dl Est Cr Clr Drug Dosing 125.8 ml/min Est GFR ( Amer) 125.0 ml/min Est GFR (Non-Af Amer) 107.9 ml/min BUN/Creatinine Ratio 5.6 L (10-20) Glucose 101 H (70-99(Fasting)) mg/dl Calcium 8.4 L (8.6-10.3) mg/dl Total Bilirubin 1.2 H (0.2-1.0) mg/dl AST 32 (13-39) U/L ALT 78 H (7-52) U/L Alkaline Phosphatase 148 H (34-104) U/L Total Protein 6.3 (6.0-8.3) gm/dl Albumin 3.2 L (3.4-5.0) gm/dl Globulin 3.1 (2.5-4.0) gm/dl Albumin/Globulin Ratio 1.0 (0.9-2)
--- NOTE | 2023-08-08 18:18 | Discharge Summary ---
Date of Service August 08, 2023 Admission HPI Per Admitting Provider This is a 53-year-old male who presents to the ER with sharp right upper quadrant abdominal pain since 3 AM this morning. The pain does radiate into his back. No aggravating or leaving factors. He denies any fevers or chills. He denies scleral icterus, tea colored urine, acholic stools or jaundice. He denies any abdominal surgeries. He takes Eliquis for a history of DVT. He last took this last night. He has never had a colonoscopy. He denies any constipation, melena or hematochezia. Principal Diagnosis Acute cholecystitis Discharge Exam alert oriented Constitutional cooperative and comfortable; no acute distress Respiratory normal respiratory effort and able to speak in complete sentences; no respiratory distress Cardiovascular Rate/Rhythm: regular rate and + tachycardic (98) Gastrointestinal (Abdomen) Inspection/Auscultation: + abdominal surgical incision (dermabond, CDI); abdomen not distended Percussion/Palpation: abdomen soft; no guarding Neurologic awake; not confused Psychiatric A+Ox3, euthymic affect Orientation: oriented x 3 and cooperative Discharge Data Allergies Allergy/AdvReac Type Severity Reaction Status Date / Time No Known Allergies Allergy Unverified 07/31/23 08:59 Consultations 07/31/23 11:41 ED Decision to Admit Stat 08/05/23 08:27 Consult Gastroenterology Routine Procedures Performed Operation Date: 08/02/23 Laparoscopic Cholecystectomy- Dr. Leblanc Operation Date: 08/07/23 12:30 Actual Procedures p Esophagogastroduodenoscopy - Romy Prasad DO p Endoscopic Ultrasonography Upper - Romy Prasad DO s Endoscopic Retrograde Cholangiopancreato - Romy Prasad DO Ordered Studies 07/31/23 07:50 CT Abd and Pelvis [CT abd pelvis IV con only] Stat 08/03/23 10:02 MRI MRCP [MR MRCP] Urgent 08/07/23 12:29 US upper EUS PACS images Routine 08/07/23 12:30 [place] ERCP biliary ductal Routine Hospital Course (1) Status post laparoscopic cholecystectomy: Patient presented to the [facility] ER on 07/31/23 with complaint of sharp right upper quadrant abdominal pain. A workup in the ER showed the patient had acute cholecystitis. Patient takes Eliquis for a past history of DVT, this was held following admission. The patient was admitted to the hospital for care and observation and was administered IV antibiotics. He underwent a Laparoscopic Cholecystectomy on 08/02/[address] Leblanc and remained in the hospital over night for care and observation. It was noted on post operative day 1 that the patients LFTs were trending upward and he underwent an MRCP. The results did not suggest choledocholithiasis, he remained in the hospital for further care and evaluation. On post operative day 2 08/04/23 LFT were downtrending and patient continued in hospital care. On postoperative day 3, 08/05/23, LFTs were up trending a HIDA scan was ordered, and GI consult placed. The patient underwent an EUS/ERCP on 08/07/23 and had a biliary and pancreatic stent placed. The patients diet was advanced, he was tolerating without nausea and vomiting. He had no complaints of pain, VSS, and exhibited no s/s of post operative infection. On 08/08/23 the patient was deemed stable for discharge. He was given two weeks of PO antibiotics and pain medication. He was instructed to resume his Eliquis on 08/12/23 per GI recommendations. He was given return precautions and discharge instructions and verbalized understanding of needing an outpatient f/u in [place] with a surgeon, PCP, and GI specialist for stent removal. Total Time Total Time Spent Total Time Spent (In Minutes): 30 Discharge Plan Discharge Items Patient Disposition: Home - Self-Care Reason For Visit: ACUTE CHOLECYSTITIS Discharge Diagnosis: Laparoscopic cholecystectomy Condition on Discharge: Good Activity: As commented below Lifting: No more than 10 pounds Lifting Comment: No more than 10lbs for next 1 week , then no more then 25lbs for 2 weeks Bathing Comment: you can shower, no pools or baths for 2 weeks Exercise/Sports: Wait until after follow-up appointment Driving/Machine Use: no driving while taking narcotic pain meds Non-emergency contact: Primary Care Provider, Surgeon and Home Service Demonstrator Call non-emergency contact if: you have any medication questions, your symptoms worsen, your pain is worsening, your temperature is above 101, your wound has increased redness, your wound has increased drainage and your wound pain has increased Follow-up/Referrals: Geovany Leblanc DO [Physician] - (call office for follow up in 2 weeks ) Marylu Sandoval MD [Primary Care Provider] - Diet: Regular Addtl Attending Provider Instructions: You have surgical glue called dermabond on your surgical site incisions. You may shower with this on. This will tend to come off within a couple of weeks. Do not pick at it. You may purchase Tylenol over the counter if needed for additional pain control over the next few days. Take per manufacturers instructions. Do Not take more than 3 grams of Tylenol in 24 hours. you can resume your Eliquis on 08/12/23 You need to be seen next week by your PCP in [place] You need to be seen by a general surgeon for a follow up in 2 weeks. You need to be seen by a farm equipment assembler for your stent removal, please call to get these appointments established. During the ERCP a prophylactic pancreatic stent was placed, in addition to a plastic biliary stent due to underlying papillary stenosis. Complete a 10-day course of antibiotics per general surgery/GI. Avoid Non-Steroidal and anticoagulation for 5 days (Can resume Eliquis on 08/12/23) Patient will need follow-up with a farm equipment assembler closer to home for removal of biliary stent and pancreatic stent in 6 to 8 weeks. Call our office if you have questions or concerns Pending Studies at Discharge: Yes Studies:: surgical pathology Stand-Alone Forms: My [facility] [employer], Smoking Cessation Medications and DC Order Prescriptions: New oxycodone 5 mg tablet 5 - 10 mg PO .[id number] MDD no more than 6 tabs in 24hours PRN (Reason: pain) Qty: 15 0RF Rx Instructions: take one to two tabs by mouth every 4-6 hours as needed for pain amoxicillin-pot clavulanate 875-125 mg tablet 1 tab PO Q12H MDD 2 14 Days Qty: 28 0RF Rx Instructions: Take one tablet by mouth every 12 hours for the next 14 days. Finish all of antibiotic even if feeling better. Continued sildenafil 100 mg tablet 100 - 200 mg PO DIRECTED PRN (Reason: Other) Held Eliquis 5 mg tablet 5 mg PO BID Hold Instructions: Resume on 08/12/23. Discharge Orders: Discharge Order (Routine); Ordered 08/08/23 Ordered By: Jose Pennington Admission Data Admit Date/Time: 07/31/23 11:45 Attending Provider: Geovany Leblanc Admit Provider: Geovany Leblanc Primary Care Provider: Marylu Sandoval Other Providers: Geovany Leblanc; Fabrice Hale; Eulogio Hayes; Bette Anne; Joan Salinas; Kateryna Deshpande; Erika Reis; Deepak Vuong; Julio C Caballero; Romy Prasad; Colleen Crawford; Chung Lu; Juanito Miranda; Noemí Jones; Danni Serna; Lexi Domingo; Kendal Butt; Ciara Norris; Ronak Valencia; Guille Gold; Iram Minor; Serene Anthony Jr Other Interventions: Discharge Summary Assessment (RN) Last Done: 08/08/23 11:02 Coding Level of Care Code 37760 IN/OBS DISCH 30 MIN/LESS Diagnoses Status post laparoscopic cholecystectomy Z90.49
== END 2023-08-08 12:14 | disposition home or self-care (01) | DRG 419 ==
LOC: ED 06:24 → 3N 11:45